=== PATIENT | female | born 1985 | race Caucasian/White ===

== ENCOUNTER 2016-06-20 20:21 | Emergency (ER) | payer MEDICAID ==
[~2016-06-20] VITALS: Ht 160 cm; Wt 90.6 kg
--- OUTSIDE RECORDS SUMMARY | 2016-06-20 20:27 | XMS REPORT | Continuity of Care Document ---
Author Author [facility] Organization [facility] Address [address] [place] [address] ;ext= Care Team Providers Care Justowriter Operator Name Role Phone SOREN MCGUIRE Admitting Physician Unavailable SOREN MCGUIRE Attending Physician Unavailable ALIZE RESENDIZ Primary Care Physician [phone] Hospital Admission Diagnosis * No data in the System Social History Element Description Code Description Smoking Status Code System Start Date End Date Smoking Status [id number] Heavy tobacco smoker SNOMED-CT Problems Code Code System Problem Name Start Date End Date Status 232243603 SNOMED-CT Tobacco dependence, continuous 03/11/2015 Active 217259790 SNOMED-CT Asthma 03/11/2015 Active 515535083 SNOMED-CT C/O - a headache 04/09/2014 Inactive 150807212 SNOMED-CT Asthma NOS Unknown Active 188258346 SNOMED-CT C/O - cough Unknown Inactive 27364689 SNOMED-CT Hypothyroidism Unknown Active 07502681 SNOMED-CT Polycystic ovaries Unknown Active Medications RxNorm Medication Dose Route Instructions Indications Start Date End Date Status Cetirizine 10 milligram Oral orally every day at bedtime allergies Active LANSINOH UD CREAM 100% THIN LAYER TOPICAL TOPICAL NEEDED as needed. 03/18/2015 Active 547651 montelukast 10 MG Oral Tablet 10 milligram Oral orally every evening Active 979994 Omeprazole 20 MG Delayed Release Oral Tablet 20 milligram Oral orally every evening Reflux during Active Synthroid 50 microgram Oral orally every day Active 550496 Acetaminophen 325 MG / Hydrocodone Bitartrate 10 MG Oral Tablet 1 tablet Oral orally every 6 hours as needed. pain No Longer Active 5775571 Acetaminophen 325 MG / Oxycodone Hydrochloride 10 MG Oral Tablet 2 TABLETS ORAL ORAL EVERY FOUR HOURS NEEDED as needed. 03/18/2015 No Longer Active 435 Albuterol 2 puffs Inhalation inhaled every 4 hours as needed. (unsure of dose) shortness of breath No Longer Active Cetirizine 10 milligram Oral orally every day as needed. allergy symptoms No Longer Active fluticasone 2 inhalation Inhalation inhaled every 12 hours as needed. (unsure of dose) No Longer Active Ibuprofen 800 MG Oral Tablet 800 MG ORAL ORAL EVERY EIGHT HOURS NEEDED as needed. 03/18/2015 No Longer Active 19971013 Levofloxacin 500 MG Oral Tablet 500 milligram Oral orally every 24 hours (7 days) No Longer Active levothyroxine by Mouth by Mouth No Longer Active lortab 7.5mg by Mouth by Mouth No Longer Active 20010414 montelukast 10 MG Oral Tablet 10 milligram Oral orally every day No Longer Active 180327 pioglitazone 30 MG Oral Tablet 30 milligram Oral orally every day No Longer Active 250857 prednisolone 5 MG Oral Tablet 20 milligram Oral orally every 12 hours (9 days) (tapering dose) No Longer Active Formula 1 tablet tablet Oral orally every day at bedtime No Longer Active Previfem 1 tablet Oral orally every day No Longer Active 72725 salmeterol 2 inhalation Inhalation inhaled every 12 hours as needed. (unsure of dose) No Longer Active 8500616 Sulfacetamide Sodium 100 MG/ML Ophthalmic Solution 1 drop Ophthalmic into the eye(s) every 3 hours (7 day) (left eye) No Longer Active Allergies * No Known Allergies Results Laboratory Results Order: HCG Qualatative Urine Legend: D=Delta, H=High, L=Low, HH=Critical High, LL=Critical Low, AA=Critical Alpha-Numeric, C=Corrected, A=Abnormal LOINC Test Result Flag Range Units Date 1HCG SerPl-Imp Negative NEGATIVE 04/07/2015 16:15 * Performing Lab Footnotes:* [facility] [id number] - [address] - [place] Order: Urinalysis With Microscopic Exam Legend: D=Delta, H=High, L=Low, HH=Critical High, LL=Critical Low, AA=Critical Alpha-Numeric, C=Corrected, A=Abnormal LOINC Test Result Flag Range Units Date 5778-6 Color Ur Yellow 04/07/2015 16:15 46771-5 Clarity Ur Clear 04/07/2015 16:15 2966-0 Sp Gr 24h Ur <=1.005 1.005-1.030 04/07/2015 16:15 2756-5 pH Ur 5.5 5.0-7.0 04/07/2015 16:15 01126-2 Leukocyte esterase Ur-aCnc Negative NEGATIVE 04/07/2015 16:15 21031-8 Nitrite Ur Ql Strip.auto Negative NEGATIVE 04/07/2015 16:15 47045-3 Prot Tiss-mCnt Negative NEGATIVE 04/07/2015 16:15 2349-9 Glucose Ur Ql Negative NEGATIVE 04/07/2015 16:15 34514-2 MEK Ur-mCnc Negative NEGATIVE 04/07/2015 16:15 1977-8 Bilirub Ur Ql Negative NEGATIVE 04/07/2015 16:15 933-2 Bld Prod Typ BPU Moderate * NEGATIVE 04/07/2015 16:15 49743-0 Urobilinogen Ur Ql 0.2 <=1.0 04/07/2015 16:15 1WBC_UM 0-2 * 0-5 /HPF 04/07/2015 16:15 5808-1 1RBC # UrnS HPF 0-2 * 0-5 /HPF 04/07/2015 16:15 5787-7 1Epi Cells #/area UrnS HPF 5-10 * 0-2 /HPF 04/07/2015 16:15 83528-6 1Trans Cells #/area UrnS HPF 0-2 04/07/2015 16:15 15226-4 1C trach UrnS Ql Cult N 04/07/2015 16:15 * Performing Lab Footnotes:* [facility] [id number] - [address] - [place] Order: Amylase Legend: D=Delta, H=High, L=Low, HH=Critical High, LL=Critical Low, AA=Critical Alpha-Numeric, C=Corrected, A=Abnormal LOINC Test Result Flag Range Units Date 17988 1Amylase SerPl-cCnc 52 29-103 u/l 04/07/2015 16:11 * Performing Lab Footnotes:* [facility] - [id number] - [address] [place] [address] - [place] Order: CBC With Automated Differential Legend: D=Delta, H=High, L=Low, HH=Critical High, LL=Critical Low, AA=Critical Alpha-Numeric, C=Corrected, A=Abnormal LOINC Test Result Flag Range Units Date 6690-2 1WBC # Bld Auto 7.0 4.5-11.0 10^3/mm3 04/07/2015 16:11 51080-8 1Retics # Auto 4.93 4.00-5.20 10^6/mm3 04/07/2015 16:11 63681-9 1Hgb BldV-mCnc 15.5 12.0-16.0 g/dl 04/07/2015 16:11 4544-3 1Hct VFr Bld Auto 46.0 36.0-46.0 % 04/07/2015 16:11 787-2 1MCV RBC Auto 93.3 82.0-100.0 10^6/mm3 04/07/2015 16:11 785-6 1MCH RBC Qn Auto 31.4 27.0-34.0 pg 04/07/2015 16:11 786-4 1MCHC RBC Auto-mCnc 33.7 32.0-36.0 g/dl 04/07/2015 16:11 788-0 1RDW RBC Auto-Rto 12.9 11.7-15.0 % 04/07/2015 16:11 777-3 1Platelet # Bld Auto 335 150-450 10^3/mm3 04/07/2015 16:11 31615-7 1PMV Bld 10.7 H 7.4-10.4 04/07/2015 16:11 75218-3 1Neutrophils # CSF 76.5 H 40.0-74.0 % 04/07/2015 16:11 1LYMPH% 13.1 L 14.0-46.0 % 04/07/2015 16:11 58932-6 1CD43 Ag Tiss Ql ImStn 6.7 4.0-13.0 % 04/07/2015 16:11 711-2 1Eosinophil # Bld Auto 3.4 0.0-4.0 % 04/07/2015 16:11 704-7 1Basophils # Bld Auto 0.3 <=3.0 % 04/07/2015 16:11 751-8 1Neutrophils # Bld Auto 5.4 1.8-7.8 04/07/2015 16:11 53690-4 1Lymphocytes # Bld 0.9 0.7-4.5 04/07/2015 16:11 40143-0 1CD43 Ag Tiss Ql ImStn 0.5 0.1-1.0 04/07/2015 16:11 711-2 1Eosinophil # Bld Auto 0.24 <=4.00 04/07/2015 16:11 704-7 1Basophils # Bld Auto 0.02 <=0.20 04/07/2015 16:11 2MANDIFF N 04/07/2015 16:11 01671-7 2RBC Bld Auto N 04/07/2015 16:11 * Performing Lab Footnotes:* [facility] - [id number] - [address] - [place] * [facility] - [id number] - [address] - Sanding Machine Operator:, Lexie Rowe MD - [place] Order: Comprehensive Metabolic Panel Legend: D=Delta, H=High, L=Low, HH=Critical High, LL=Critical Low, AA=Critical Alpha-Numeric, C=Corrected, A=Abnormal LOINC Test Result Flag Range Units Date 2344-09 1Glucose SerPl-mCnc 90 70-105 mg/dl 04/07/2015 16:11 3094-0 1BUN SerPl-mCnc 12 7-25 mg/dl 04/07/2015 16:11 2160-0 1Creat SerPl-mCnc 0.8 0.6-1.3 mg/dl 04/07/2015 16:11 55445-2 1Creat/Urea nit SerPl 15 13-39 04/07/2015 16:11 2951-2 1Sodium SerPl-sCnc 135 135-145 mmol/L 04/07/2015 16:11 69410-4 1Potassium SerPl-mCnc 4.0 3.5-5.1 mmol/L 04/07/2015 16:11 2075-0 1Chloride SerPl-sCnc 100 98-107 mmol/l 04/07/2015 16:11 2028-9 1CO2 SerPl-sCnc 25 21-31 mmol/l 04/07/2015 16:11 44254-3 1Anion Gap SerPl-sCnc 14 9-16 mmol/L 04/07/2015 16:11 2692-2 1Osmolality SerPl 279 277-298 mOsm/kg 04/07/2015 16:11 99928-9 1Calcium SerPl-mCnc 9.6 8.2-10.0 mg/dl 04/07/2015 16:11 1742-6 1ALT SerPl-cCnc 17 7-52 IU/L 04/07/2015 16:11 1920-8 1AST SerPl-cCnc 18 13-39 IU/L 04/07/2015 16:11 1715-2 1ACP SerPl-cCnc 80 34-104 U/L 04/07/2015 16:11 1975-2 1Bilirub SerPl-mCnc 0.8 0.3-1.0 mg/dl 04/07/2015 16:11 2885-2 1Prot SerPl-mCnc 7.8 6.0-8.3 g/dL 04/07/2015 16:11 1751-7 1Albumin SerPl-mCnc 3.7 3.5-5.7 g/dl 04/07/2015 16:11 2336-6 1Globulin Ser-mCnc 4.1 H 2.3-3.2 g/dL 04/07/2015 16:11 1759-0 1Albumin/Glob SerPl 0.9 L 1.2-2.0 04/07/2015 16:11 1GFR 87 60-116 GFRunits 04/07/2015 16:11 * Performing Lab Footnotes:* [facility] - [id number] - [address] - [place] Order: Lipase Legend: D=Delta, H=High, L=Low, HH=Critical High, LL=Critical Low, AA=Critical Alpha-Numeric, C=Corrected, A=Abnormal LOINC Test Result Flag Range Units Date 3040-3 1Lipase SerPl-cCnc 31 11-82 U/L 04/07/2015 16:11 * Performing Lab Footnotes:* [facility] - [id number] - [address] [address] [place] - [place] Vital Signs Vitals Value Date Body Temperature 98.4 F 04/07/2015 Respiratory Rate 16 04/07/2015 O2% BldC Oximetry 96 04/07/2015 BP Systolic 131 mmHg 04/07/2015 BP Diastolic 93 mmHg 04/07/2015 Height 63 in 04/07/2015 Weight Measured 197 lbs 04/07/2015 BSA (Body Surface Area) 1.96328 04/07/2015 BMI (Body Mass Index) 34.9 04/07/2015 Plan of Care * No data in the system Procedures * No data in the system Encounters * No data in the system Immunizations Vaccine Code Code System Vaccine Name Date Status 88 CVX influenza virus vaccine, NOS 12/10/2011 Completed Functional Status * No data in the system Hospital Discharge Instructions * No data in the system
--- OUTSIDE RECORDS SUMMARY | 2016-06-20 20:27 | XMS REPORT | Continuity of Care Document ---
Author Author [facility] Organization [facility] Address Unknown Phone Unavailable Allergies Active Description Code Type Severity Reaction Onset Reported/Identified Relationship to Patient Clinical Status Yes Augmentin 4242 Unknown intolerance 04/18/2013 Yes Penicillins 476 Unknown N/A 04/09/2014 Yes No Known Allergies 200813 Unknown N/A 03/18/2015 Medications Problems Date Dx Coded Attending Type Code Diagnosis Diagnosed By 10/01/2014 ANGELICA BRAY 244.9 UNSPECIFIED HYPOTHYROIDISM 10/01/2014 ANGELICA BRAY V22.2 STATE, INCIDENTAL 10/20/2014 SANGEETHA BURNETT P V28.89 OTHER SPECIFIED SCREENING 2014 SAPPHIRE BRANTLEY P 648.73 BONE AND JOINT DISORDERS OF BACK, PELVIS, AND LOWER LIMBS COMPLICATING 2014 SAPPHIRE BRANTLEY 724.5 BACKACHE, UNSPECIFIED 11/17/2014 Shashi BENITO S 592.1 CALCULUS OF URETER 11/17/2014 Shashi BENITO P 789.00 ABDOMINAL PAIN, UNSPECIFIED SITE 12/05/2014 ANGELICA RBAY 244.9 UNSPECIFIED HYPOTHYROIDISM 12/05/2014 ANGELICA BRAY 256.4 POLYCYSTIC OVARIES 12/05/2014 ANGELICA BRAY V22.2 STATE, INCIDENTAL 12/16/2014 SAPPHIRE BRANTLEY P V28.89 OTHER SPECIFIED SCREENING 01/24/2015 SAPPHIRE BRANTLEY P V28.89 OTHER SPECIFIED SCREENING 01/24/2015 SAPPHIRE BRANTLEY P Z34.83 ENCOUNTER FOR SUPERVISION OF OTHER NORMAL , THIRD TRIMESTER 01/24/2015 SAPPHIRE BRANTLEY S Z3A.31 31 WEEKS GESTATION OF 03/01/2015 ANGELICA BRAY 244.9 UNSPECIFIED HYPOTHYROIDISM 03/01/2015 ANGELICA BRAY 246.9 UNSPECIFIED DISORDER OF THYROID 03/01/2015 ANGELICA BRAY 256.4 POLYCYSTIC OVARIES 03/01/2015 ANGELICA BRAY P 648.13 THYROID DYSFUNCTION COMPLICATING , CHILDBIRTH, OR THE PUERPERIUM, ANTEP 03/01/2015 ANGELICA BRAY E03.9 HYPOTHYROIDISM, UNSPECIFIED 03/01/2015 ANGELICA BRAY E28.2 POLYCYSTIC OVARIAN SYNDROME 03/01/2015 ANGELICA BRAY P O99.283 ENDOCRINE, NUTRITIONAL AND METABOLIC DISEASES COMPLICATING , THIRD TRIMESTER 03/01/2015 ANGELICA BRAY Z3A.36 36 WEEKS GESTATION OF 03/02/2015 SANGEETHA BURNETT P Z36 ENCOUNTER FOR SCREENING OF MOTHER 03/17/2015 P Z01.812 ENCOUNTER FOR PREPROCEDURAL LABORATORY EXAMINATION 03/17/2015 SANGEETHA BURNETT Z36 ENCOUNTER FOR SCREENING OF MOTHER 04/14/2015 BLACK MCGUIRE A04.7 ENTEROCOLITIS DUE TO CLOSTRIDIUM DIFFICILE 04/14/2015 BLACK MCGUIRE A08.39 OTHER VIRAL ENTERITIS 04/14/2015 BLACK MCGUIRE R19.7 DIARRHEA, UNSPECIFIED 04/19/2015 GURU CALERO E03.9 HYPOTHYROIDISM, UNSPECIFIED 04/19/2015 GURU CALERO J34.3 HYPERTROPHY OF NASAL TURBINATES 04/19/2015 GURU CALERO J35.01 CHRONIC TONSILLITIS 04/19/2015 GURU CALERO Z01.818 ENCOUNTER FOR OTHER PREPROCEDURAL EXAMINATION 04/26/2015 SANGEETHA BURNETT F17.210 NICOTINE DEPENDENCE, CIGARETTES, UNCOMPLICATED 04/26/2015 SANGEETHA BURNETT O34.21 MATERNAL CARE FOR SCAR FROM PREVIOUS DELIVERY 04/26/2015 SANGEETHA BURNETT O99.334 SMOKING (TOBACCO) COMPLICATING CHILDBIRTH 04/26/2015 SANGEETHA BURNETT Z37.0 SINGLE LIVE 04/26/2015 SANGEETHA BURNETT Z3A.39 39 WEEKS GESTATION OF 05/13/2015 BLACK MCGUIRE K57.92 DIVERTICULITIS OF INTESTINE, PART UNSPECIFIED, WITHOUT PERFORATION OR ABSCESS WITHOUT BLEEDING 05/13/2015 BLACK MCGUIRE R11.10 VOMITING, UNSPECIFIED Procedures Code Description Performed By Performed On 40C71G4 EXTRACTION OF PRODUCTS OF CONCEPTION, LOW CERVICAL, OPEN APPROACH KRISTIN BURNETTLOPEZ Vega 03/18/2015 Results Encounters ACCT No. Visit Date/Time Discharge Status Pt. Type Provider Facility Loc./Unit Complaint [id number] 04/12/2015 12:26:00 ACT Unknown GURU CALERO [id number] 04/08/2015 15:53:00 ACT Unknown BLACK MCGUIRE [id number] 04/07/2015 15:32:00 [facility] NSER NAUSEA AND / OR VOMITING [id number] 03/18/2015 09:28:00 ACT Inpatient LEXSANGEETHA DONIS [facility] NSOB [id number] 03/17/2015 15:00:00 Document Registration [id number] 03/02/2015 12:55:00 ACT Unknown SANGEETHA BURNETT [facility] OBGYN [id number] 02/15/2015 07:47:00 ACT Unknown ANGELICA BRAY [id number] 01/10/2015 13:19:00 ACT Unknown SAPPHIRE BRANTLEY [facility] OBGYN [id number] 12/02/2014 11:01:00 ACT Unknown ANGELICA BRAY [id number] 11/02/2014 09:53:00 ACT Unknown SAPPHIRE BRANTLEY [id number] 10/31/2014 13:30:00 ACT Unknown Shashi BENITO [facility] NSER UTI COMPLAINTS [id number] 10/20/2014 10:11:00 ACT Unknown SANGEETHA BURNETT [facility] OBGYN [id number] 10/20/2014 10:11:00 ACT Unknown LEXSANGEETHA [facility] OBGYN [id number] 09/28/2014 13:21:00 ACT Unknown ANGELICA BRAY
--- OUTSIDE RECORDS SUMMARY | 2016-06-20 20:27 | XMS REPORT | Continuity of Care Document ---
Author Author [facility] Organization [facility] Address [address] [place] [address] ;ext= Care Team Providers Care Supervisor Mail Carriers Name Role Phone SOREN MCGUIRE Admitting Physician Unavailable SOREN MCGUIRE Attending Physician Unavailable Hospital Admission Diagnosis * No data in the System Social History Element Description Code Description Smoking Status Code System Start Date End Date Smoking Status 500112424 Unknown if ever smoked SNOMED-CT Problems Code Code System Problem Name Start Date End Date Status 071364984 SNOMED-CT Tobacco dependence, continuous 03/11/2015 Active 863865484 SNOMED-CT Asthma 03/11/2015 Active 137565137 SNOMED-CT C/O - a headache 04/09/2014 Inactive 663076024 SNOMED-CT Asthma NOS Unknown Active 903193605 SNOMED-CT C/O - cough Unknown Inactive 02264556 SNOMED-CT Hypothyroidism Unknown Active 17525725 SNOMED-CT Polycystic ovaries Unknown Active Medications RxNorm Medication Dose Route Instructions Indications Start Date End Date Status Cetirizine 10 milligram Oral orally every day at bedtime allergies Active LANSINOH UD CREAM 100% THIN LAYER TOPICAL TOPICAL NEEDED as needed. 03/18/2015 Active 254276 montelukast 10 MG Oral Tablet 10 milligram Oral orally every evening Active 803979 Omeprazole 20 MG Delayed Release Oral Tablet 20 milligram Oral orally every evening Reflux during Active Synthroid 50 microgram Oral orally every day Active 236839 Acetaminophen 325 MG / Hydrocodone Bitartrate 10 MG Oral Tablet 1 tablet Oral orally every 6 hours as needed. pain No Longer Active 5303200 Acetaminophen 325 MG / Oxycodone Hydrochloride 10 MG Oral Tablet 2 TABLETS ORAL ORAL EVERY FOUR HOURS NEEDED as needed. 03/18/2015 No Longer Active 435 Albuterol 2 puffs Inhalation inhaled every 4 hours as needed. (unsure of dose) shortness of breath No Longer Active Cetirizine 10 milligram Oral orally every day as needed. allergy symptoms No Longer Active 82492 fluticasone 2 inhalation Inhalation inhaled every 12 [...] Oral orally every day No Longer Active 068036 pioglitazone 30 MG Oral Tablet 30 milligram Oral orally every day No Longer Active 070155 prednisolone 5 MG Oral Tablet 20 milligram Oral orally every 12 hours (9 days) (tapering dose) No Longer Active Formula 1 tablet tablet Oral orally every day at bedtime No Longer Active Previfem 1 tablet Oral orally every day No Longer Active 38245 salmeterol 2 inhalation Inhalation inhaled every 12 hours as needed. (unsure of dose) No Longer Active 9726325 Sulfacetamide Sodium 100 MG/ML Ophthalmic Solution 1 drop Ophthalmic into the eye(s) every 3 hours (7 day) (left eye) No Longer Active Allergies * No Known Allergies Results Laboratory Results Order: GI Panel Legend: D=Delta, H=High, L=Low, HH=Critical High, LL=Critical Low, AA=Critical Alpha-Numeric, C=Corrected, A=Abnormal LOINC Test Result Flag Range Units Date GI Panel 1Campylobacter Not Detected NOT DETECTED 04/08/2015 13:00 1C. diff A/B Detected 04/08/2015 13:00 1Plesiomonas shig Not Detected 04/08/2015 13:00 1Salmonella Not Detected 04/08/2015 13:00 1Vibrio Not Detected 04/08/2015 13:00 1Vibrio cholerae Not Detected 04/08/2015 13:00 1Yersinia entero Not Detected 04/08/2015 13:00 1EAEC Not Detected 04/08/2015 13:00 1EPEC Not Detected 04/08/2015 13:00 1ETEC Not Detected 04/08/2015 13:00 1STEC Not Detected 04/08/2015 13:00 1E. coli O157 N/A 04/08/2015 13:00 1Shigella/EIEC Not Detected 04/08/2015 13:00 1Cryptosporidum Not Detected 04/08/2015 13:00 1Cyclospora cayet. Not Detected 04/08/2015 13:00 1Entamoeba histo. Not Detected 04/08/2015 13:00 1Giardia lamblia Not Detected 04/08/2015 13:00 1Adenovirus F 40/41 Not Detected 04/08/2015 13:00 1Astrovirus Not Detected 04/08/2015 13:00 1Norovirus GI/GII Detected 04/08/2015 13:00 1Rotavirus A Not Detected 04/08/2015 13:00 1Sapovirus Not Detected 04/08/2015 13:00 GI Panel Abbreviations Plesiomonas shigelloidesClostridium Difficile toxin A/B Yersinia enterocolitica Enteroaggregative E.coli(EAEC)Enteropathogenic E.coli (EPEC) Enterotoxigenic E. coli (ETEC)Shiga toxin 1/2 (STEC) Shigella/ Enteroinvasive E. coli (EIEC) Cyclospora cayetariensis Entamoeba histolytica The performance of this test has only been validated with human stool collected in Nohelia Kaleb transport medium, according to the media manufacturers' instructions. It has not been validated for use with other stool transport media , raw stool, rectal swabs, endoscopy stool aspirates, or vomitis. * [employer] limitations of procedure instructions* * Performing Lab Footnotes:* [address] [place] [address] Laboratory - [id number] - [address] [place] [address] - [place] Order: Occult Blood Stool Legend: D=Delta, H=High, L=Low, HH=Critical High, LL=Critical Low, AA=Critical Alpha-Numeric, C=Corrected, A=Abnormal LOINC Test Result Flag Range Units Date 18411-7 1OB Pnl Stl Imm Negative NEGATIVE 04/08/2015 13:00 * Performing Lab Footnotes:* [facility] [id number] - [address] Kevin LOPEZ Order: WBC Stool Legend: D=Delta, H=High, L=Low, HH=Critical High, LL=Critical Low, AA=Critical Alpha-Numeric, C=Corrected, A=Abnormal LOINC Test Result Flag Range Units Date 6743-9 1WBC # Fld Manual Negative 04/08/2015 13:00 Reporting of Fecal WBC is now being reported by immunochromatographic testing for qualitative dectection of elevated fecal lactoferrin, a maker for fecal leukocytes and an indicator of intestinal inflammation. A positive test result indicates an increased level of fecal lactoferrin and warrants additional testing. * Performing Lab Footnotes:* [facility] - [id number] - [address] [place] [address] [place] Vital Signs * No data in the system Plan of Care * No data in [...]
--- OUTSIDE RECORDS SUMMARY | 2016-06-20 20:27 | XMS REPORT | Continuity of Care Document ---
Author Author [facility] Organization [facility] Address [address] [place] [address] ;ext= Care Team Providers Care Drawer In Stitch Bonding Machine Name Role Phone Silvia FONTAINE Admitting Physician [phone] Silvia FONTAINE Attending Physician [phone] Hospital Admission Diagnosis Code Admission Diagnosis Date [id number] Maternal tobacco use Social History Element Description Code Description Smoking Status Code System Start Date End Date Smoking Status [id number] Heavy tobacco smoker SNOMED-CT Problems Code Code System Problem Name Start Date End Date Status 216085967 SNOMED-CT Tobacco dependence, continuous 03/11/2015 Active 192283998 SNOMED-CT Asthma 03/11/2015 Active 255218239 SNOMED-CT C/O - a headache 04/09/2014 Inactive 271456954 SNOMED-CT Asthma NOS Unknown Active 969310186 SNOMED-CT C/O - cough Unknown Inactive 41484584 SNOMED-CT Hypothyroidism Unknown Active 64287883 SNOMED-CT Polycystic ovaries Unknown Active Medications RxNorm Medication Dose Route Instructions Indications Start Date End Date Status Cetirizine 10 milligram Oral orally every day at bedtime allergies Active LANSINOH UD CREAM 100% THIN LAYER TOPICAL TOPICAL NEEDED as needed. 03/18/2015 Active 473017 montelukast 10 MG Oral Tablet 10 milligram Oral orally every evening Active 570349 Omeprazole 20 MG Delayed Release Oral Tablet 20 milligram Oral orally every evening Reflux during Active Synthroid 50 microgram Oral orally every day Active 878128 Acetaminophen 325 MG / Hydrocodone Bitartrate 10 MG Oral Tablet 1 tablet Oral orally every 6 hours as needed. pain No Longer Active 0455787 Acetaminophen 325 MG / Oxycodone Hydrochloride 10 MG Oral Tablet 2 TABLETS ORAL ORAL EVERY FOUR HOURS NEEDED as needed. 03/18/2015 No Longer Active 435 Albuterol 2 puffs Inhalation inhaled every 4 hours as needed. (unsure of dose) shortness of breath No Longer Active 54107 Cetirizine 10 milligram Oral orally every day as needed. allergy symptoms No Longer Active 52833 fluticasone 2 inhalation Inhalation inhaled every 12 [...] Oral orally every day No Longer Active 197882 pioglitazone 30 MG Oral Tablet 30 milligram Oral orally every day No Longer Active 688474 prednisolone 5 MG Oral Tablet 20 milligram Oral orally every 12 hours (9 days) (tapering dose) No Longer Active Formula 1 tablet tablet Oral orally every day at bedtime No Longer Active Previfem 1 tablet Oral orally every day No Longer Active 30008 salmeterol 2 inhalation Inhalation inhaled every 12 hours as needed. (unsure of dose) No Longer Active 1006566 Sulfacetamide Sodium 100 MG/ML Ophthalmic Solution 1 drop Ophthalmic into the eye(s) every 3 hours (7 day) (left eye) No Longer Active Allergies * No Known Allergies Results Laboratory Results Order: CBC With Automated Differential Legend: D=Delta, H=High, L=Low, HH=Critical High, LL=Critical Low, AA=Critical Alpha-Numeric, C=Corrected, A=Abnormal LOINC Test Result Flag Range Units Date 6689-04 1WBC # Bld Auto 10.9 4.5-11.0 10^3/mm3 03/19/2015 06:50 11791-2 1Retics # Auto 3.70 L 4.00-5.20 10^6/mm3 03/19/2015 06:50 09631-1 1Hgb BldV-mCnc 12.1 12.0-16.0 g/dl 03/19/2015 06:50 4544-3 1Hct VFr Bld Auto 35.4 L 36.0-46.0 % 03/19/2015 06:50 787-2 1MCV RBC Auto 95.7 82.0-100.0 10^6/mm3 03/19/2015 06:50 785-6 1MCH RBC Qn Auto 32.7 27.0-34.0 pg 03/19/2015 06:50 786-4 1MCHC RBC Auto-mCnc 34.2 32.0-36.0 g/dl 03/19/2015 06:50 788-0 1RDW RBC Auto-Rto 14.2 11.7-15.0 % 03/19/2015 06:50 777-3 1Platelet # Bld Auto 159 150-450 10^3/mm3 03/19/2015 06:50 21579-4 1PMV Bld 11.4 H 7.4-10.4 03/19/2015 06:50 82193-7 1Neutrophils # CSF 67.6 40.0-74.0 % 03/19/2015 06:50 1LYMPH% 20.6 14.0-46.0 % 03/19/2015 06:50 01033-0 1CD43 Ag Tiss Ql ImStn 9.8 4.0-13.0 % 03/19/2015 06:50 711-2 1Eosinophil # Bld Auto 1.8 0.0-4.0 % 03/19/2015 06:50 704-7 1Basophils # Bld Auto 0.2 <=3.0 % 03/19/2015 06:50 751-8 1Neutrophils # Bld Auto 7.3 1.8-7.8 03/19/2015 06:50 00059-7 1Lymphocytes # Bld 2.2 0.7-4.5 03/19/2015 06:50 34068-5 1CD43 Ag Tiss Ql ImStn 1.1 H 0.1-1.0 03/19/2015 06:50 711-2 1Eosinophil # Bld Auto 0.20 <=4.00 03/19/2015 06:50 704-7 1Basophils # Bld Auto 0.02 <=0.20 03/19/2015 06:50 2MANDIFF N 03/19/2015 06:50 58169-7 2RBC Bld Auto N 03/19/2015 06:50 * Performing Lab Footnotes:* 1[facility] - [id number] - [address] - [place] * [id number] [address] - Building Services Coordinator:, Louise Rowe MD - [place] Order: Hemoglobin and Hematocrit Legend: D=Delta, H=High, L=Low, HH=Critical High, LL=Critical Low, AA=Critical Alpha-Numeric, C=Corrected, A=Abnormal LOINC Test Result Flag Range Units Date 83603-2 1Hgb BldV-mCnc 12.4 12.0-16.0 g/dl 03/18/2015 15:48 4544-3 1Hct VFr Bld Auto 36.1 36.0-46.0 % 03/18/2015 15:48 * Performing Lab Footnotes:* [facility] - [id number] - [address] - [place] Order: Urinalysis Stewart Insertion * Order Result Comment:* 1Urine microscopic not indicated. Legend: D=Delta, H=High, L=Low, HH=Critical High, LL=Critical Low, AA=Critical Alpha-Numeric, C=Corrected, A=Abnormal LOINC Test Result Flag Range Units Date 5778-6 1Color Ur Light Straw 03/18/2015 11:10 76350-2 1Clarity Ur Clear 03/18/2015 11:10 2966-0 1Sp Gr 24h Ur 1.015 1.005-1.030 03/18/2015 11:10 2756-5 1pH Ur 7.0 5.0-7.0 03/18/2015 11:10 31690-7 1Leukocyte esterase Ur-aCnc Negative NEGATIVE 03/18/2015 11: 10 80392-3 1Nitrite Ur Ql Strip.auto Negative NEGATIVE 03/18/2015 11:10 09439-0 1Prot Tiss-mCnt Negative NEGATIVE 03/18/2015 11:10 2349-9 1Glucose Ur Ql Negative NEGATIVE 03/18/2015 11:10 60485-1 1MEK Ur-mCnc Negative NEGATIVE 03/18/2015 11:10 1977-8 1Bilirub Ur Ql Negative NEGATIVE 03/18/2015 11:10 933-2 1Bld Prod Typ BPU Trace-intact * NEGATIVE 03/18/2015 11:10 82264-8 1Urobilinogen Ur Ql 0.2 <=1.0 03/18/2015 11:10 59697-6 1C trach UrnS Ql Cult N 03/18/2015 11:10 * Performing Lab Footnotes:* [facility] - [id number] - [address] - [place] Order: Activated Partial Thromboplastin Time Legend: D=Delta, H=High, L=Low, HH=Critical High, LL=Critical Low, AA=Critical Alpha-Numeric, C=Corrected, A=Abnormal LOINC Test Result Flag Range Units Date 1PTT 24.5 24.0-35.0 Seconds 03/18/2015 09:55 * Performing Lab Footnotes:* [facility] - [id number] - [address] - [place] Order: Protime With INR Legend: D=Delta, H=High, L=Low, HH=Critical High, LL=Critical Low, AA=Critical Alpha-Numeric, C=Corrected, A=Abnormal LOINC Test Result Flag Range Units Date 1PT 9.2 9.1-11.6 Seconds 03/18/2015 09:55 69192-7 1INR p heparin adsorption PPP 0.92 0.90-1.15 03/18/2015 09:55 * Performing Lab Footnotes:* [facility] - [id number] - [address] [place], [place] [id number] [place] [address] - [place] Vital Signs Vitals Value Date Body Temperature 97.5 F 03/20/2015 Respiratory Rate 18 03/20/2015 O2% BldC Oximetry 98 03/20/2015 BP Systolic 134 mmHg 03/20/2015 BP Diastolic 71 mmHg 03/20/2015 Height 64 in 03/18/2015 Weight Measured 210 lbs 03/18/2015 BSA (Body Surface Area) 1.06821 03/18/2015 BMI (Body Mass Index) 36.2 03/18/2015 Plan of Care Goal Instructions Discharge home today. Please take medication as prescribed. Please call the office if you develop pain not relieved by prescribed mediation, if you develop temperature greater than 100.4, excessive vaginal bleeding, or puss like drainage from your incision. Please follow-up in the office with Dr. Fontaine in 1 week for staple removal. Please follow-up in the office in 6 weeks for post - visit. Procedures Code Code System Procedure Name Target Site Date of Procedure [id number] SNOMED section 03/18/2015 [id number] ICD10 XTRCT PRODUCTS CONCEPTION L CERV OP 03/18/2015 Encounters Date Code Diagnosis Status (ICD10) - F63810 SMOKING TOBACCO COMP CHILDBIRTH Active Immunizations Vaccine Code Code System Vaccine Name Date Status 88 CVX influenza virus vaccine, NOS 12/10/2011 Completed Functional Status * No data in the system Hospital Discharge Instructions * DC Instr* CONGRATULATIONS!* We would like to take this moment to extend our heartfelt congratulations on the arrival of your infant. * It has been a pleasure and an honor to be involved in your care. * We sincerely hope that your and experience has been a rewarding and joyous event. * However, these next few weeks will be very important for you and your baby. * Diet* You may resume a normal diet when you are discharged from the hospital. * Remember, you are nursing and you still have increased calorie demands and dieting is not recommended. * You should continue your vitamins until your six week check-up or for as long as you may be nursing. * Activity* For the first week you are home, it is best to minimize activity until you are more comfortable with baby's schedule. * After the first week you may begin driving, housework, shopping, or exercise. * Medications* Continue your vitamins until your 6 week check-up or if for the duration of your nursing. * Advil or Tylenol is recommended for any minor discomforts. * Your doctor may prescribe a stronger pain medication if you are experiencing more discomfort or if a delivery. * Additionally, you may receive prescriptions for iron supplements, stool softeners, or antibiotics. * If you have questions about your prescriptions please ask your doctor or call the office. * Special Instructions* For hemorrhoids, use 15 minute sitz baths several times a day. * Keep your stool soft by drinking plenty of fluids and eating fruits and vegetables. * You may also use a stool softener such as Colace. * ~ For constipation, increase your fluid intake; take a stool softener such as Colace, or use Milk of Magnesia or Dulcolax. * Call your doctor if you have not had a bowel movement by the 4th day following delivery. * If you had a , an appointment should be made for 10-14 days after discharge for staple removal. * You may bathe or shower as you wish, be sure to keep the incision dry afterwards. * If you notice any increase in pain, redness, drainage from incision, or temp greater than 100.4, contact your physician. * We do not recommend resumption of use of tampons, douching, or intercourse for 6 weeks following delivery. * Bleeding* Your bleeding may persist variably following delivery. * It may stop and start or it may seem to linger for weeks. * If you are not nursing often your periods will resume in 4 - 6 weeks. * In some instances, it may not resume for up to 6 months. * Bleeding patterns vary, no need for alarm unless you saturate 1 or more pad per hour. * If this occurs you should contact your physician. * Contraception* Even if you have not resumed your period, never assume you cannot get . * Refrain from sexual intercourse for 6 weeks or until approved by physician. * Breast Care* ~ Call your physician at the first sign of a breast infection. * This would include pain, redness and/or a temperature greater than 100.4 F degrees. * If you are , cleanse the breast with water only. * It is generally better to avoid the use of soap on the breasts. * Office Visit* ~ Plan to see your doctor for a follow-up visit in 6 weeks. * If you had a , an appointment should be made for 10-14 days after discharge for staple removal. * At any time you feel you are experiencing a problem, call the office to be seen before any scheduled visit. * CALL YOUR DOCTOR IF YOU EXPERIENCE ANY OF THE FOLLOWING: * ~ Continuous abdominal pain. * ~ Foul smelling vaginal discharge. * ~ Heavy bleeding (a full size sanitary napkin in an hour) * ~ Pain or redness in the leg * ~ Difficulty urinating. * ~ Temperature greater than 100.4 F. * ~ Tenderness or localized redness of the breasts. * APPOINTMENTS:* March 28 at 10:[address] Saha. * New Mom Handbook* Given * Rubella* Immune
--- OUTSIDE RECORDS SUMMARY | 2016-06-20 20:27 | XMS REPORT | Summary of Care ---
Author Author [facility], [facility] Unknown Address [address] [place], [place] [address] Phone Unavailable Care Team Providers Care Supervisor Soakers Name Role Phone Verify PCP PP Unavailable Unavailable Unavailable Functional Status Functional Status Health Issues* Name Dates Details Functional status health issues are not documented Status: Cognitive Status Health Issues* Name Dates Details Cognitive status health issues are not documented Status: Problems Name Dates Details Diarrhea (787.91, R19.7) Status: Active Abdominal pain, epigastric (789.06, R10.13) Status: Active Insomnia (780.52, G47.00) Status: Active Irritable bowel syndrome (564.1, K58.9) Status: Active Chronic viral hepatitis C (070.54, B18.2) Status: Active Dyspepsia (536.8, K30) Status: Active Chronic tonsillitis (474.00, J35.01) Status: Active Tonsillar hypertrophy (474.11, J35.1) Status: Active Tonsillith (474.8, J35.8) Status: Active Nasal congestion (478.19, R09.81) Status: Active Hypertrophy of nasal turbinates (478.0, J34.3) Status: Active Medications Name Dates Details Synthroid 50 MCG Oral Tablet TAKE 1 TABLET DAILY. * Started 15-Mar-2015 ActiveOmeprazole 20 MG Oral Capsule Delayed Release TAKE 1 CAPSULE DAILY. * Quantity: 30 Refills: 0 * Started 15-Mar-2015 ActiveCetirizine HCl - 10 MG Oral Tablet TAKE 1 TABLET DAILY DIRECTED. * Refills: 0 * Started 15-Mar-2015 ActivePrenatal 6.75-0.2 MG Oral Tablet * Refills: 0 * Started 15-Mar-2015 ActiveMontelukast Sodium 10 MG Oral Tablet TAKE 1 TABLET DAILY. * Refills: 0 * Started 15-Mar-2015 ActiveAlbuterol Sulfate (2.5 MG/3ML) 0.083% Inhalation Nebulization Solution * Refills: 0 * Started 15-Mar-2015 Active Allergies and Adverse Reactions Name Dates Details Amoxicillin CAPS Status: Active Cephalexin CAPS Status: Active Keflex TABS Status: Active Penicillins Status: Active Past Medical History Name Dates Details History of Abdominal Pain Chronic / Constant Status: Resolved History of ALT (SGPT) level raised (790.4, R74.0) Status: Resolved Procedures Procedure Dates Details History of Section History of Gallbladder Surgery History of Gastric Laparoscopy Procedures not documented Immunization Name Dates Details Immunizations not documented Family History Grandfather* Name Dates Details Family history of lung cancer (V16.1, Z80.1) Status: Active Grandparent* Name Dates Details Family history of lung disease (V19.8, Z83.6) Status: Active Mother* Name Dates Details Family history of epilepsy (V17.2, Z82.0) Status: Active Father* Name Dates Details Family history of hypertension (V17.49, Z82.49) Status: Active Family history of lung disease (V19.8, Z83.6) Status: Active Family history of sleep apnea (V19.8, Z82.0) Status: Active Family history of hyperlipidemia (V18.19, Z83.49) Status: Active Family history of lung cancer (V16.1, Z80.1) Status: Active Brother* Name Dates Details Family history of epilepsy (V17.2, Z82.0) Status: Active Grandfather* Name Dates Details Family history of lung cancer (V16.1, Z80.1) Status: Active Social History Name Dates Details Smoking Status* Current every day smoker Vital Signs Date Test Result Details 15-Mar-2015 11:19 BP Systolic 143 mm[Hg] Status: BP Diastolic 74 mm[Hg] Status: Heart Rate 78 /min Status: Weight 215 lb Status: Results Date Description Value Details Results not documented Plan of Care Planned Observations* Name Dates Details Planned Goals not documented Goal Planned Encounters* Appointment; Provider: Rikki Dawn On 21-Apr-2015 10:15 * Appointment; Provider: Rikki Dawn On 15-Apr-2015 11:00 Instructions * Instructions not documented Encounters Appointment; Rikki Dawn Encounter Diagnosis: Problem not documented On 15-Mar-2015 10:15
--- OUTSIDE RECORDS SUMMARY | 2016-06-20 20:28 | XMS REPORT | Continuity of Care Document ---
Author Author [facility] Organization [facility] Address [address] [place] [address] ;ext= Care Team Providers Care Head Of Quality Name Role Phone ANGELICA BRAY Admitting Physician [phone] ANGELICA BRAY Attending Physician [phone] Hospital Admission Diagnosis * No data in the System Social History Element Description Code Description Smoking Status Code System Start Date End Date Smoking Status [id number] Heavy tobacco smoker SNOMED-CT Problems Code Code System Problem Name Start Date End Date Status 316481704 SNOMED-CT C/O - a headache 04/09/2014 Active 708895352 SNOMED-CT Asthma NOS Unknown Active 545537247 SNOMED-CT C/O - cough Unknown Active 64176195 SNOMED-CT Hypothyroidism Unknown Active 37708121 SNOMED-CT Polycystic ovaries Unknown Active Medications RxNorm Medication Dose Route Instructions Indications Start Date End Date Status 435 Albuterol 1 puff Inhalation inhaled every 4 hours as needed. (unsure of dose) shortness of breath Active Synthroid 50 microgram Oral orally every day Active 015709 Acetaminophen 325 MG / Hydrocodone Bitartrate 10 MG Oral Tablet 1 tablet Oral orally every 6 hours as needed. pain No Longer Active 41340 Cetirizine 10 milligram Oral orally every day as needed. allergy symptoms No Longer Active 84441 fluticasone 2 inhalation Inhalation inhaled every 12 hours as needed. (unsure of dose) No Longer Active 19971013 Levofloxacin 500 MG Oral Tablet 500 milligram Oral orally every 24 hours (7 days) No Longer Active levothyroxine by Mouth by Mouth No Longer Active lortab 7.5mg by Mouth by Mouth No Longer Active 20010414 montelukast 10 MG Oral Tablet 10 milligram Oral orally every day No Longer Active 515825 pioglitazone 30 MG Oral Tablet 30 milligram Oral orally every day No Longer Active 19800610 prednisolone 5 MG Oral Tablet 20 milligram Oral orally every 12 hours (9 days) (tapering dose) No Longer Active Previfem 1 tablet Oral orally every day No Longer Active 56276 salmeterol 2 inhalation Inhalation inhaled every 12 hours as needed. (unsure of dose) No Longer Active 5425215 Sulfacetamide Sodium 100 MG/ML Ophthalmic Solution 1 drop Ophthalmic into the eye(s) every 3 hours (7 day) (left eye) No Longer Active Allergies Code Code System Allergy Substance Type Reaction Severity Start Date End Date Status 492933 RXNorm Augmentin Drug allergy intolerance Unknown 04/18/2013 Active 7986 RXNorm Penicillins Drug allergy Unknown 04/09/2014 Active Results Laboratory Results Order: T4 Free Legend: D=Delta, H=High, L=Low, HH=Critical High, LL=Critical Low, AA=Critical Alpha-Numeric, C=Corrected, A=Abnormal LOINC Test Result Flag Range Units Date 3024-7 1T4 Free SerPl-mCnc 0.74 0.61-1.12 ng/dl 02/15/2015 08:09 * Performing Lab Footnotes:* [id number] - [address] - [place] Order: Thyroid Stimulating Hormone Legend: D=Delta, H=High, L=Low, HH=Critical High, LL=Critical Low, AA=Critical Alpha-Numeric, C=Corrected, A=Abnormal LOINC Test Result Flag Range Units Date 1TSH 2.00 0.34-5.60 uIU/ml 02/15/2015 08:09 * Performing Lab Footnotes:* [facility] [id number] - [address] - [place] Vital Signs * No data [...]
--- OUTSIDE RECORDS SUMMARY | 2016-06-20 20:28 | XMS REPORT | Summary of Care ---
Author Author [facility], [facility] Unknown Address [address] [place], [place] [address] Phone Unavailable Care Team Providers Care Quick Mixer Operator Name Role Phone López Grant, Jose Cruz Unavailable Unavailable Outside, Physician PP Unavailable Unavailable Unavailable Functional Status Functional [...] Status: Active Dyspepsia (536.8, K30) Status: Active Tonsillar hypertrophy (474.11, J35.1) Status: Active Tonsillith (474.8, J35.8) Status: Active Nasal congestion (478.19, R09.81) Status: Active Chronic otitis media (382.9, H66.90) Status: Active Post-tonsillectomy pain (784.1, G89.18) Status: Active Hypertrophy of nasal turbinates (478.0, J34.3) Status: Active Chronic tonsillitis (474.00, J35.01) Status: Active Medications Name Dates Details Synthroid [...] Solution * Refills: 0 * Started 15-Mar-2015 ActiveCiprofloxacin HCl - 500 MG Oral Tablet Take 1 tablet twice daily * Quantity: 14 Refills: 0 Rikki Dawn M.D.* Started 18-Apr-2015 ActiveMethylPREDNISolone (Roni) 4 MG TABS TAKE DIRECTED ON PATIENT INSTRUCTION CARD. * Quantity: 1 Refills: 0 Rikki Dawn M.D.* Started 21-Apr-2015 Active Allergies and Adverse Reactions Name Dates [...] smoker Vital Signs Date Test Result Details No Known Vitals to report Results Date Description Value Details Results not documented Plan of Care Planned Observations* Name Dates Details Planned Goals not documented Goal Instructions * Instructions not documented Encounters Appointment; Rikki Dawn Encounter Diagnosis: Problem not documented On 12-May-2015 11:00 Appointment; Rikki Dawn Encounter Diagnosis: Problem not documented On 21-Apr-2015 10:15 Appointment; Rikki Dawn Encounter Diagnosis: Problem not documented On 15-Apr-2015 11:00 Appointment; Rikki Dawn Encounter Diagnosis: Problem not documented On 15-Mar-2015 10:15
--- OUTSIDE RECORDS SUMMARY | 2016-06-20 20:28 | XMS REPORT ---
Author Author [facility] Organization Unknown Address Unknown Phone Unavailable Care Team Providers Care Reflow Operator Name Role Phone UNASSIGNED DOCTOR , DOCTOR PP [phone] Reason For Visit Chief Complaint V72.31 Social History Functional Status Vital Signs Results Problems Encounter Diagnosis No relevant problems exist. Encounters Encounter Diagnosis No relevant problems exist. Plan of Care Procedures No relevant procedures performed. Immunizations No immunizations administered or ordered. Hospital Course Hospital Discharge Instructions Allergies, Adverse Reactions, Alerts * Latex Allergy has not been assessed. * IV Contrast Allergy has not been assessed. Medication Medication reconciliation has not been performed.
--- OUTSIDE RECORDS SUMMARY | 2016-06-20 20:28 | XMS REPORT | Continuity of Care Document ---
Author Author [facility] Organization [facility] Address [address] [place] [address] ;ext= Care Team Providers Care In Home Sales Consultant Name Role Phone SOREN MCGUIRE Admitting Physician Unavailable SOREN MCGUIRE Attending Physician Unavailable Hospital Admission Diagnosis Code Admission Diagnosis Date [id number] Diarrhea Social History Element Description Code Description Smoking Status Code System Start Date End Date Smoking Status [id number] Unknown if ever smoked SNOMED-CT Problems Code Code System Problem Name Start Date End Date Status 717750192 SNOMED-CT Tobacco dependence, continuous 03/11/2015 Active 454840401 SNOMED-CT Asthma 03/11/2015 Active 660183036 SNOMED-CT C/O - a headache 04/09/2014 Inactive 427206421 SNOMED-CT Asthma NOS Unknown Active 897678948 SNOMED-CT C/O - cough Unknown Inactive 79986645 SNOMED-CT Hypothyroidism Unknown Active 57023092 SNOMED-CT Polycystic ovaries Unknown Active Medications RxNorm Medication Dose Route Instructions Indications Start Date End Date Status Cetirizine 10 milligram Oral orally every day at bedtime allergies Active LANSINOH UD CREAM 100% THIN LAYER TOPICAL TOPICAL NEEDED as needed. 03/18/2015 Active 405069 montelukast 10 MG Oral Tablet 10 milligram Oral orally every evening Active 901056 Omeprazole 20 MG Delayed Release Oral Tablet 20 milligram Oral orally every evening Reflux during Active Synthroid 50 microgram Oral orally every day Active 962851 Acetaminophen 325 MG / Hydrocodone Bitartrate 10 MG Oral Tablet 1 tablet Oral orally every 6 hours as needed. pain No Longer Active 9166946 Acetaminophen 325 MG / Oxycodone Hydrochloride 10 MG Oral Tablet 2 TABLETS ORAL ORAL EVERY FOUR HOURS NEEDED as needed. 03/18/2015 No Longer Active 435 Albuterol 2 puffs Inhalation inhaled every 4 hours as needed. (unsure of dose) shortness of breath No Longer Active Cetirizine 10 milligram Oral orally every day as needed. allergy symptoms No Longer Active 17781 fluticasone 2 inhalation Inhalation inhaled every 12 [...] Oral orally every day No Longer Active 166151 pioglitazone 30 MG Oral Tablet 30 milligram Oral orally every day No Longer Active 747280 prednisolone 5 MG Oral Tablet 20 milligram Oral orally every 12 hours (9 days) (tapering dose) No Longer Active Formula 1 tablet tablet Oral orally every day at bedtime No Longer Active Previfem 1 tablet Oral orally every day No Longer Active 37445 salmeterol 2 inhalation Inhalation inhaled every 12 hours as needed. (unsure of dose) No Longer Active 5856836 Sulfacetamide Sodium 100 MG/ML Ophthalmic Solution 1 [...] of procedure instructions* * Performing Lab Footnotes:* [id number] [address] [place] [address] - [place] Order: Occult Blood Stool Legend: D=Delta, H=High, L=Low, HH=Critical High, LL=Critical Low, AA=Critical Alpha-Numeric, C=Corrected, A=Abnormal LOINC Test Result Flag Range Units Date 64108-4 1OB Pnl Stl Imm Negative NEGATIVE 04/08/2015 13:00 * Performing Lab Footnotes:* [facility] [id number] - [address] [place] Order: WBC Stool Legend: D=Delta, H=High, [...] warrants additional testing. * Performing Lab Footnotes:* [facility] [id number] - [address] [place] Vital Signs * No data in the system Plan of Care * No data in the system Procedures * No data in the system Encounters Date Code Diagnosis Status (ICD10) - A047 ENTEROCOLIT D/T CLOSTRIDM DIFFICILE Active Immunizations Vaccine Code Code System Vaccine Name Date Status 88 CVX influenza virus vaccine, NOS 12/10/2011 Completed Functional Status * No data in the system Hospital Discharge Instructions * No data in the system
--- OUTSIDE RECORDS SUMMARY | 2016-06-20 20:28 | XMS REPORT | Continuity of Care Document ---
Author Author [facility] Organization [facility] Address [address] [place] [address] ;ext= Care Team Providers Care Hob Grinder Name Role Phone ANGELICA BRAY Admitting Physician [phone] BRAYANGELICA Attending Physician [phone] Hospital Admission Diagnosis Code Admission Diagnosis Date Endocrine, nutritional and metabolic disease complicating , childbirth and puerperium Social History Element Description Code Description Smoking Status Code System Start Date End Date Smoking Status [id number] Heavy tobacco smoker SNOMED-CT Problems Code Code System Problem Name Start Date End Date Status 149784835 SNOMED-CT C/O - a headache 04/09/2014 Active 577810645 SNOMED-CT Asthma NOS Unknown Active 602923034 SNOMED-CT C/O - cough Unknown Active 07655241 SNOMED-CT Hypothyroidism Unknown Active 11034089 SNOMED-CT Polycystic ovaries Unknown Active Medications RxNorm Medication Dose Route Instructions Indications Start Date End Date Status 435 Albuterol 1 puff Inhalation inhaled every 4 hours as needed. (unsure of dose) shortness of breath Active Synthroid 50 microgram Oral orally every day Active 240508 Acetaminophen 325 MG / Hydrocodone Bitartrate 10 MG Oral Tablet 1 tablet Oral orally every 6 hours as needed. pain No Longer Active 12919 Cetirizine 10 milligram Oral orally every day as needed. allergy symptoms No Longer Active 37688 fluticasone 2 inhalation Inhalation inhaled every 12 [...] Oral orally every day No Longer Active 916990 pioglitazone 30 MG Oral Tablet 30 milligram Oral orally every day No Longer Active 19800610 prednisolone 5 MG Oral Tablet 20 milligram Oral orally every 12 hours (9 days) (tapering dose) No Longer Active Previfem 1 tablet Oral orally every day No Longer Active 55323 salmeterol 2 inhalation Inhalation inhaled every 12 hours as needed. (unsure of dose) No Longer Active 2003039 Sulfacetamide Sodium 100 MG/ML Ophthalmic Solution 1 drop Ophthalmic into the eye(s) every 3 hours (7 day) (left eye) No Longer Active Allergies Code Code System Allergy Substance Type Reaction Severity Start Date End Date Status 207719 RXNorm Augmentin Drug allergy intolerance Unknown 04/18/2013 Active 7986 RXNorm Penicillins Drug allergy Unknown 04/09/2014 Active Results Laboratory Results Order: T4 Free Legend: D=Delta, H=High, L=Low, HH=Critical High, LL=Critical Low, AA=Critical Alpha-Numeric, C=Corrected, A=Abnormal LOINC Test Result Flag Range Units Date 3024-7 1T4 Free SerPl-mCnc 0.74 0.61-1.12 ng/dl 02/15/2015 08:09 * Performing Lab Footnotes:* [id number] [address] [place] [address] [place] Order: Thyroid Stimulating Hormone Legend: D=Delta, H=High, L=Low, HH=Critical High, LL=Critical Low, AA=Critical Alpha-Numeric, C=Corrected, A=Abnormal LOINC Test Result Flag Range Units Date 1TSH 2.00 0.34-5.60 uIU/ml 02/15/2015 08:09 * Performing Lab Footnotes:* [address] [place] [address] Laboratory - [id number] - [address] [place] [address] [place] Vital Signs * No data in the system Plan of Care * No data in the system Procedures * No data in the system Encounters Date Code Diagnosis Status (ICD10) - M85296 ENDOCRN NUTR MET DZ COMP PG 3RD TRI Active Immunizations Vaccine Code Code System Vaccine Name Date Status 88 CVX influenza virus vaccine, NOS 12/10/2011 Completed Functional Status * No data in the system Hospital Discharge Instructions * No data in the system
--- OUTSIDE RECORDS SUMMARY | 2016-06-20 20:28 | XMS REPORT | Summary of Care ---
Author Author [facility] Grant, Rikki Johns Unknown Address [address] [place], [place] [address] Phone Unavailable Care Team Providers Care Heavy Duty Truck Mechanic Name Role Phone López Grant, Jose Cruz [...] M.D.* Started 18-Apr-2015 ActiveMethylPREDNISolone (Roni) 4 MG Oral Tablet TAKE DIRECTED ON PATIENT INSTRUCTION CARD. * [...] smoker Vital Signs Date Test Result Details 12-May-2015 11:35 BP Systolic 137 mm[Hg] Status: BP Diastolic 86 mm[Hg] Status: Heart Rate 79 /min Status: Weight 199 lb Status: Results Date Description Value Details [...]
--- OUTSIDE RECORDS SUMMARY | 2016-06-20 20:28 | XMS REPORT | Continuity of Care Document ---
Author Author [facility] Organization [facility] Address [address] [place] [address] ;ext= Care Team Providers Care High Wire Artist Name Role Phone Silvia BURNETT Admitting Physician [phone] Silvia BURNETT Attending Physician [phone] Hospital Admission Diagnosis Code Admission Diagnosis Date ENCOUNTER FOR SCREENING OF MOTHER Social History Element Description Code Description Smoking Status Code System Start Date End Date Smoking Status 728985594 Unknown if ever smoked SNOMED-CT Problems Code Code System Problem Name Start Date End Date Status 876531783 SNOMED-CT C/O - a headache 04/09/2014 Active 874680662 SNOMED-CT Asthma NOS Unknown Active 694668352 SNOMED-CT C/O - cough Unknown Active 59431737 SNOMED-CT Hypothyroidism Unknown Active 10512910 SNOMED-CT Polycystic ovaries Unknown Active Medications RxNorm Medication Dose Route Instructions Indications Start Date End Date Status 435 Albuterol 1 puff Inhalation inhaled every 4 hours as needed. (unsure of dose) shortness of breath Active Synthroid 50 microgram Oral orally every day Active 128042 Acetaminophen 325 MG / Hydrocodone Bitartrate 10 MG Oral Tablet 1 tablet Oral orally every 6 hours as needed. pain No Longer Active 38737 Cetirizine 10 milligram Oral orally every day as needed. allergy symptoms No Longer Active 15588 fluticasone 2 inhalation Inhalation inhaled every 12 [...] Oral orally every day No Longer Active 926342 pioglitazone 30 MG Oral Tablet 30 milligram Oral orally every day No Longer Active 19800610 prednisolone 5 MG Oral Tablet 20 milligram Oral orally every 12 hours (9 days) (tapering dose) No Longer Active Previfem 1 tablet Oral orally every day No Longer Active 25817 salmeterol 2 inhalation Inhalation inhaled every 12 hours as needed. (unsure of dose) No Longer Active 1292254 Sulfacetamide Sodium 100 MG/ML Ophthalmic Solution 1 drop Ophthalmic into the eye(s) every 3 hours (7 day) (left eye) No Longer Active Allergies Code Code System Allergy Substance Type Reaction Severity Start Date End Date Status 674605 RXNorm Augmentin Drug allergy intolerance Unknown 04/18/2013 Active 7986 RXNorm Penicillins Drug allergy Unknown 04/09/2014 Active Results * No data in the system Vital Signs * No data in the system Plan of Care * No data in the system Procedures * No data in the system Encounters Date Code Diagnosis Status (ICD10) - Z36 ENC FOR SCREENING MOTHER Active Immunizations Vaccine Code Code System Vaccine Name Date Status 88 CVX influenza virus vaccine, NOS 12/10/2011 Completed Functional Status * No data in the system Hospital Discharge Instructions * No data in the system
--- OUTSIDE RECORDS SUMMARY | 2016-06-20 20:28 | XMS REPORT | Continuity of Care Document ---
Author Author [facility] Organization [facility] Address [address] [place] [address] ;ext= Care Team Providers Care Deicer Inspector Pneumatic Name Role Phone Silvia FONTAINE Admitting Physician [phone] Silvia FONTANIE Attending Physician [phone] Hospital Admission Diagnosis * No data in the System Social History Element Description Code Description Smoking Status Code System Start Date End Date Smoking Status [id number] Heavy tobacco smoker SNOMED-CT Problems Code Code System Problem Name Start Date End Date Status 584218938 SNOMED-CT Tobacco dependence, continuous 03/11/2015 Active 693601327 SNOMED-CT Asthma 03/11/2015 Active 691670093 SNOMED-CT C/O - a headache 04/09/2014 Inactive 532695319 SNOMED-CT Asthma NOS Unknown Active 048303144 SNOMED-CT C/O - cough Unknown Inactive 86475018 SNOMED-CT Hypothyroidism Unknown Active 16438382 SNOMED-CT Polycystic ovaries Unknown Active Medications RxNorm Medication Dose Route Instructions Indications Start Date End Date Status 0443828 Acetaminophen 325 MG / Oxycodone Hydrochloride 10 MG Oral Tablet 2 TABLETS ORAL ORAL EVERY FOUR HOURS NEEDED as needed. 03/18/2015 Active Cetirizine 10 milligram Oral orally every day at bedtime allergies Active 174149 Ibuprofen 800 MG Oral Tablet 800 MG ORAL ORAL EVERY EIGHT HOURS NEEDED as needed. 03/18/2015 Active LANSINOH UD CREAM 100% THIN LAYER TOPICAL TOPICAL NEEDED as needed. 03/18/2015 Active 20010414 montelukast 10 MG Oral Tablet 10 milligram Oral orally every evening Active 168428 Omeprazole 20 MG Delayed Release Oral Tablet 20 milligram Oral orally every evening Reflux during Active Synthroid 50 microgram Oral orally every day Active 874107 Acetaminophen 325 MG / Hydrocodone Bitartrate 10 MG Oral Tablet 1 tablet Oral orally every 6 hours as needed. pain No Longer Active 435 Albuterol 2 puffs Inhalation inhaled every 4 hours as needed. (unsure of dose) shortness of breath No Longer Active 91098 Cetirizine 10 milligram Oral orally every day as needed. allergy symptoms No Longer Active 44731 fluticasone 2 inhalation Inhalation inhaled every 12 [...] Oral orally every day No Longer Active 315789 pioglitazone 30 MG Oral Tablet 30 milligram Oral orally every day No Longer Active 207448 prednisolone 5 MG Oral Tablet 20 milligram Oral orally every 12 hours (9 days) (tapering dose) No Longer Active Formula 1 tablet tablet Oral orally every day at bedtime No Longer Active Previfem 1 tablet Oral orally every day No Longer Active 99015 salmeterol 2 inhalation Inhalation inhaled every 12 hours as needed. (unsure of dose) No Longer Active 7800232 Sulfacetamide Sodium 100 MG/ML Ophthalmic Solution 1 [...] Bld Auto 10.9 4.5-11.0 10^3/mm3 03/19/2015 06:50 04020-7 1Retics # Auto 3.70 L 4.00-5.20 10^6/mm3 03/19/2015 06:50 54747-7 1Hgb BldV-mCnc 12.1 12.0-16.0 g/dl 03/19/2015 06:50 [...] Bld Auto 159 150-450 10^3/mm3 03/19/2015 06:50 99508-0 1PMV Bld 11.4 H 7.4-10.4 03/19/2015 06:50 88422-5 1Neutrophils # CSF 67.6 40.0-74.0 % 03/19/2015 06:50 1LYMPH% 20.6 14.0-46.0 % 03/19/2015 06:50 44348-7 1CD43 Ag Tiss Ql ImStn 9.8 4.0-13.0 % 03/19/2015 06:50 711-2 1Eosinophil # Bld Auto 1.8 0.0-4.0 % 03/19/2015 06:50 704-7 1Basophils # Bld Auto 0.2 <=3.0 % 03/19/2015 06:50 751-8 1Neutrophils # Bld Auto 7.3 1.8-7.8 03/19/2015 06:50 56818-5 1Lymphocytes # Bld 2.2 0.7-4.5 03/19/2015 06:50 47970-9 1CD43 Ag Tiss Ql ImStn 1.1 H 0.1-1.0 03/19/2015 06:50 711-2 1Eosinophil # Bld Auto 0.20 <=4.00 03/19/2015 06:50 704-7 1Basophils # Bld Auto 0.02 <=0.20 03/19/2015 06:50 2MANDIFF N 03/19/2015 06:50 52620-8 2RBC Bld Auto N 03/19/2015 06:50 * Performing Lab Footnotes:* [facility] [id number] [address] - [place] * [facility] - [id number] - [address] - Metal Rivet Machine Operator:, Louise Rowe MD - [place] Order: Hemoglobin and Hematocrit Legend: D=Delta, H=High, L=Low, HH=Critical High, LL=Critical Low, AA=Critical Alpha-Numeric, C=Corrected, A=Abnormal LOINC Test Result Flag Range Units Date 83536-1 1Hgb BldV-mCnc 12.4 12.0-16.0 g/dl 03/18/2015 15:48 4544-3 1Hct VFr Bld Auto 36.1 36.0-46.0 % 03/18/2015 15:48 * Performing Lab Footnotes:* [facility] [id number] - [address] [place] Order: Urinalysis Stewart Insertion * Order Result Comment:* 1Urine microscopic not indicated. Legend: D=Delta, H=High, L=Low, HH=Critical High, LL=Critical Low, AA=Critical Alpha-Numeric, C=Corrected, A=Abnormal LOINC Test Result Flag Range Units Date 5778-6 1Color Ur Light Straw 03/18/2015 11:10 54860-0 1Clarity Ur Clear 03/18/2015 11:10 2966-0 1Sp Gr 24h Ur 1.015 1.005-1.030 03/18/2015 11:10 2756-5 1pH Ur 7.0 5.0-7.0 03/18/2015 11:10 51057-6 1Leukocyte esterase Ur-aCnc Negative NEGATIVE 03/18/2015 11: 10 95550-6 1Nitrite Ur Ql Strip.auto Negative NEGATIVE 03/18/2015 11:10 51413-3 1Prot Tiss-mCnt Negative NEGATIVE 03/18/2015 11:10 2349-9 1Glucose Ur Ql Negative NEGATIVE 03/18/2015 11:10 61001-3 1MEK Ur-mCnc Negative NEGATIVE 03/18/2015 11:10 1977-8 1Bilirub Ur Ql Negative NEGATIVE 03/18/2015 11:10 933-2 1Bld Prod Typ BPU Trace-intact * NEGATIVE 03/18/2015 11:10 67762-7 1Urobilinogen Ur Ql 0.2 <=1.0 03/18/2015 11:10 75070-5 1C trach UrnS Ql Cult N 03/18/2015 11:10 * Performing Lab Footnotes:* [facility] - [id number] - [address] - [place] Order: Activated Partial Thromboplastin Time Legend: D=Delta, H=High, L=Low, HH=Critical High, LL=Critical Low, AA=Critical Alpha-Numeric, C=Corrected, A=Abnormal LOINC Test Result Flag Range Units Date 1PTT 24.5 24.0-35.0 Seconds 03/18/2015 09:55 * Performing Lab Footnotes:* [facility] - [id number] - [address] - [place] Order: Protime With INR Legend: D=Delta, H=High, L=Low, HH=Critical High, LL=Critical Low, AA=Critical Alpha-Numeric, C=Corrected, A=Abnormal LOINC Test Result Flag Range Units Date 1PT 9.2 9.1-11.6 Seconds 03/18/2015 09:55 26319-3 1INR p heparin adsorption PPP 0.92 0.90-1.15 03/18/2015 09:55 * Performing Lab Footnotes:* [facility] - [id number] - [address] [place], [place] [address] [place] [address] - [place] ROW[place] Vital Signs Vitals Value Date Body Temperature 97.5 F 03/20/2015 Respiratory Rate 18 03/20/2015 O2% BldC Oximetry 98 03/20/2015 BP Systolic 134 mmHg 03/20/2015 BP Diastolic 71 mmHg 03/20/2015 Height 64 in 03/18/2015 Weight Measured 210 lbs 03/18/2015 BSA (Body Surface Area) 1.28464 03/18/2015 BMI (Body Mass Index) 36.2 03/18/2015 [...] Procedure Name Target Site Date of Procedure [id number] SNOMED section 03/18/2015 Encounters * No data in the system [...]
--- OUTSIDE RECORDS SUMMARY | 2016-06-20 20:28 | XMS REPORT ---
Author Author [facility] Organization Unknown Address Unknown Phone Unavailable Care Team Providers Care Louver Mortiser Operator Name Role Phone UNASSIGNED DOCTOR , DOCTOR PP [phone] Reason For Visit Chief Complaint Z01.411 R87.610 Social History Functional Status Vital Signs Results [...]
--- OUTSIDE RECORDS SUMMARY | 2016-06-20 20:28 | XMS REPORT | Continuity of Care Document ---
Author Author [facility] Organization [facility] Address [address] [place] [address] ;ext= Care Team Providers Care Vibration Technician Name Role Phone SOREN MCGUIRE Admitting Physician Unavailable SOREN MCGUIRE Attending Physician Unavailable ALIZE RESENDIZ Primary Care Physician [phone] Hospital Admission Diagnosis Code Admission Diagnosis Date [id number] Vomiting Social History Element Description Code Description Smoking Status Code System Start Date End Date Smoking Status [id number] Heavy tobacco smoker SNOMED-CT Problems Code Code System Problem Name Start Date End Date Status 523153869 SNOMED-CT Tobacco dependence, continuous 03/11/2015 Active 532932588 SNOMED-CT Asthma 03/11/2015 Active 175822293 SNOMED-CT C/O - a headache 04/09/2014 Inactive 125766556 SNOMED-CT Asthma NOS Unknown Active 386166189 SNOMED-CT C/O - cough Unknown Inactive 51679443 SNOMED-CT Hypothyroidism Unknown Active 42247200 SNOMED-CT Polycystic ovaries Unknown Active Medications RxNorm Medication Dose Route Instructions Indications Start Date End Date Status Cetirizine 10 milligram Oral orally every day at bedtime allergies Active LANSINOH UD CREAM 100% THIN LAYER TOPICAL TOPICAL NEEDED as needed. 03/18/2015 Active 357728 montelukast 10 MG Oral Tablet 10 milligram Oral orally every evening Active 464570 Omeprazole 20 MG Delayed Release Oral Tablet 20 milligram Oral orally every evening Reflux during Active Synthroid 50 microgram Oral orally every day Active 243284 Acetaminophen 325 MG / Hydrocodone Bitartrate 10 MG Oral Tablet 1 tablet Oral orally every 6 hours as needed. pain No Longer Active 9280310 Acetaminophen 325 MG / Oxycodone Hydrochloride 10 MG Oral Tablet 2 TABLETS ORAL ORAL EVERY FOUR HOURS NEEDED as needed. 03/18/2015 No Longer Active 435 Albuterol 2 puffs Inhalation inhaled every 4 hours as needed. (unsure of dose) shortness of breath No Longer Active 63295 Cetirizine 10 milligram Oral orally every day as needed. allergy symptoms No Longer Active 80077 fluticasone 2 inhalation Inhalation inhaled every 12 [...] Oral orally every day No Longer Active 001346 pioglitazone 30 MG Oral Tablet 30 milligram Oral orally every day No Longer Active 294454 prednisolone 5 MG Oral Tablet 20 milligram Oral orally every 12 hours (9 days) (tapering dose) No Longer Active Formula 1 tablet tablet Oral orally every day at bedtime No Longer Active Previfem 1 tablet Oral orally every day No Longer Active 63254 salmeterol 2 inhalation Inhalation inhaled every 12 hours as needed. (unsure of dose) No Longer Active 2045723 Sulfacetamide Sodium 100 MG/ML Ophthalmic Solution 1 drop Ophthalmic into the eye(s) every 3 hours (7 day) (left eye) No Longer Active Allergies * No Known Allergies Results Laboratory Results Order: HCG Qualatative Urine Legend: D=Delta, H=High, L=Low, HH=Critical High, LL=Critical Low, AA=Critical Alpha-Numeric, C=Corrected, A=Abnormal LOINC Test Result Flag Range Units Date 1HCG SerPl-Imp Negative NEGATIVE 04/07/2015 16:15 * Performing Lab Footnotes:* 1[facility] - [id number] - [address] [place] [address] - [place] Order: Urinalysis With Microscopic Exam Legend: D=Delta, H=High, L=Low, HH=Critical High, LL=Critical Low, AA=Critical Alpha-Numeric, C=Corrected, A=Abnormal LOINC Test Result Flag Range Units Date 5778-6 Color Ur Yellow 04/07/2015 16:15 57344-7 Clarity Ur Clear 04/07/2015 16:15 2966-0 Sp Gr 24h Ur <=1.005 1.005-1.030 04/07/2015 16:15 2756-5 pH Ur 5.5 5.0-7.0 04/07/2015 16:15 44807-5 Leukocyte esterase Ur-aCnc Negative NEGATIVE 04/07/2015 16:15 82708-2 Nitrite Ur Ql Strip.auto Negative NEGATIVE 04/07/2015 16:15 27656-2 Prot Tiss-mCnt Negative NEGATIVE 04/07/2015 16:15 2349-9 Glucose Ur Ql Negative NEGATIVE 04/07/2015 16:15 88401-7 MEK Ur-mCnc Negative NEGATIVE 04/07/2015 16:15 1977-8 Bilirub Ur Ql Negative NEGATIVE 04/07/2015 16:15 933-2 Bld Prod Typ BPU Moderate * NEGATIVE 04/07/2015 16:15 94818-9 Urobilinogen Ur Ql 0.2 <=1.0 04/07/2015 16:15 1WBC_UM 0-2 * 0-5 /HPF 04/07/2015 16:15 5808-1 1RBC # UrnS HPF 0-2 * 0-5 /HPF 04/07/2015 16:15 5787-7 1Epi Cells #/area UrnS HPF 5-10 * 0-2 /HPF 04/07/2015 16:15 92492-1 1Trans Cells #/area UrnS HPF 0-2 04/07/2015 16:15 90341-2 1C trach UrnS Ql Cult N 04/07/2015 16:15 * Performing Lab Footnotes:* 1[facility] - [id number] - [address] - [place] Order: Amylase Legend: D=Delta, H=High, L=Low, HH=Critical High, LL=Critical Low, AA=Critical Alpha-Numeric, C=Corrected, A=Abnormal LOINC Test Result Flag Range Units Date 17988 1Amylase SerPl-cCnc 52 29-103 u/l 04/07/2015 16:11 * Performing Lab Footnotes:* 1[facility] - [id number] - [address] [place] [address] - [place] Order: CBC With Automated Differential Legend: D=Delta, H=High, L=Low, HH=Critical High, LL=Critical Low, AA=Critical Alpha-Numeric, C=Corrected, A=Abnormal LOINC Test Result Flag Range Units Date 6690-2 1WBC # Bld Auto 7.0 4.5-11.0 10^3/mm3 04/07/2015 16:11 71994-0 1Retics # Auto 4.93 4.00-5.20 10^6/mm3 04/07/2015 16:11 85565-6 1Hgb BldV-mCnc 15.5 12.0-16.0 g/dl 04/07/2015 16:11 [...] Bld Auto 335 150-450 10^3/mm3 04/07/2015 16:11 55211-1 1PMV Bld 10.7 H 7.4-10.4 04/07/2015 16:11 25978-2 1Neutrophils # CSF 76.5 H 40.0-74.0 % 04/07/2015 16:11 1LYMPH% 13.1 L 14.0-46.0 % 04/07/2015 16:11 75130-9 1CD43 Ag Tiss Ql ImStn 6.7 4.0-13.0 % 04/07/2015 16:11 711-2 1Eosinophil # Bld Auto 3.4 0.0-4.0 % 04/07/2015 16:11 704-7 1Basophils # Bld Auto 0.3 <=3.0 % 04/07/2015 16:11 751-8 1Neutrophils # Bld Auto 5.4 1.8-7.8 04/07/2015 16:11 32767-2 1Lymphocytes # Bld 0.9 0.7-4.5 04/07/2015 16:11 05814-3 1CD43 Ag Tiss Ql ImStn 0.5 0.1-1.0 04/07/2015 16:11 711-2 1Eosinophil # Bld Auto 0.24 <=4.00 04/07/2015 16:11 704-7 1Basophils # Bld Auto 0.02 <=0.20 04/07/2015 16:11 2MANDIFF N 04/07/2015 16:11 37988-8 2RBC Bld Auto N 04/07/2015 16:11 * Performing Lab Footnotes:* 1[facility] - [id number] - [address] - [place] * 2[facility] - [id number] - [address] - Medication Aide:, Lexie Rowe MD - [place] Order: Comprehensive Metabolic Panel Legend: D=Delta, H=High, L=Low, HH=Critical High, LL=Critical Low, AA=Critical Alpha-Numeric, C=Corrected, A=Abnormal LOINC Test Result Flag Range Units Date 2344-09 1Glucose SerPl-mCnc 90 70-105 mg/dl 04/07/2015 16:11 3094-0 1BUN SerPl-mCnc 12 7-25 mg/dl 04/07/2015 16:11 2160-0 1Creat SerPl-mCnc 0.8 0.6-1.3 mg/dl 04/07/2015 16:11 38138-5 1Creat/Urea nit SerPl 15 13-39 04/07/2015 16:11 2951-2 1Sodium SerPl-sCnc 135 135-145 mmol/L 04/07/2015 16:11 95508-6 1Potassium SerPl-mCnc 4.0 3.5-5.1 mmol/L 04/07/2015 16:11 2075-0 1Chloride SerPl-sCnc 100 98-107 mmol/l 04/07/2015 16:11 2028-9 1CO2 SerPl-sCnc 25 21-31 mmol/l 04/07/2015 16:11 04444-2 1Anion Gap SerPl-sCnc 14 9-16 mmol/L 04/07/2015 16:11 2692-2 1Osmolality SerPl 279 277-298 mOsm/kg 04/07/2015 16:11 78984-0 1Calcium SerPl-mCnc 9.6 8.2-10.0 mg/dl 04/07/2015 16:11 [...] GFRunits 04/07/2015 16:11 * Performing Lab Footnotes:* 1[facility] - [id number] - [address] - [place] Order: Lipase Legend: D=Delta, H=High, L=Low, HH=Critical High, LL=Critical Low, AA=Critical Alpha-Numeric, C=Corrected, A=Abnormal LOINC Test Result Flag Range Units Date 3040-3 1Lipase SerPl-cCnc 31 11-82 U/L 04/07/2015 16:11 * Performing Lab Footnotes:* 1[facility] - [id number] - [address] [address] [place] - [place] Radiology Results Order: CTAPC CT Abd Pelvis W/Contrast* Exam Completion Date:04/07/2015 17:37 INDICATION: Abdominal pain - vomiting diarrhea COMPARISON: [facility] CT Abd Pelvis W/Contrast: CT with oral and IV contrast. There is a [facility]. Cholecystectomy. Prominent endometrium is of uncertain significance.Minor infiltration in the subcutaneous fat of the lower abdominal wallprobably from surgery. [facility] suggested mild diverticulitis. This wouldneed clinical correlation. No evidence of appendicitis or bowel obstruction.No evidence of a pelvic mass. Liver, spleen, pancreas, kidneys, bladder showno acute disease. Lung bases are clear.IMPRESSION: [facility] suggested diverticulitis.Released By RAYMUNDO DOTSONate: 04/08/2015 08:35 Order: CXR2VW Chest x-ray 2 views* Exam Completion Date:04/07/2015 16:46 INDICATION: Cough, abdominal pain COMPARISON: 04/24/2014Chest x-ray 2 views: There is a [facility] report. Heart size is within anormal range. The lungs are normally expanded and clear. There is noevidence of a pleural effusion.IMPRESSION: Negative chestReleased By JESSICA NIÑO, MDDate: 2015 08:31 Vital Signs Vitals Value Date Body Temperature 98.4 F 04/07/2015 Respiratory Rate 16 04/07/2015 O2% BldC Oximetry 96 04/07/2015 BP Systolic 131 mmHg 04/07/2015 BP Diastolic 93 mmHg 04/07/2015 Height 63 in 04/07/2015 Weight Measured 197 lbs 04/07/2015 BSA (Body Surface Area) 1.48628 04/07/2015 BMI (Body Mass Index) 34.9 04/07/2015 Plan of Care * No data in the system Procedures * No data in the system Encounters Date Code Diagnosis Status (ICD10) - K5792 DVTRCLI PRT UNS NO PERF/ABSC W/O BL Active Immunizations Vaccine Code Code System Vaccine Name Date Status 88 CVX influenza virus vaccine, NOS 12/10/2011 Completed Functional Status * No data in the system Hospital Discharge Instructions * No data in the system
--- OUTSIDE RECORDS SUMMARY | 2016-06-20 20:28 | XMS REPORT | Continuity of Care Document ---
Author Author [facility] Organization [facility] Address [address] [place] [address] ;ext= Care Team Providers Care Folder Machine Adjuster Name Role Phone Carole CALERO Admitting Physician [phone] Carole CALERO Attending Physician [phone] Radha BRANTLEY CP [phone] Hospital Admission Diagnosis Code Admission Diagnosis Date ENCOUNTER FOR OTHER PREPROCEDURAL EXAMINATION Social History Element Description Code Description Smoking Status Code System Start Date End Date Smoking Status [id number] Heavy tobacco smoker SNOMED-CT Problems Code Code System Problem Name Start Date End Date Status 952017140 SNOMED-CT Tobacco dependence, continuous 03/11/2015 Active 321294957 SNOMED-CT Asthma 03/11/2015 Active 933131838 SNOMED-CT C/O - a headache 04/09/2014 Inactive 414369549 SNOMED-CT Asthma NOS Unknown Active 511200820 SNOMED-CT C/O - cough Unknown Inactive 12111618 SNOMED-CT Hypothyroidism Unknown Active 90223854 SNOMED-CT Polycystic ovaries Unknown Active Medications RxNorm Medication Dose Route Instructions Indications Start Date End Date Status Cetirizine 10 milligram Oral orally every day at bedtime allergies Active LANSINOH UD CREAM 100% THIN LAYER TOPICAL TOPICAL NEEDED as needed. 03/18/2015 Active 665798 montelukast 10 MG Oral Tablet 10 milligram Oral orally every evening Active 779208 Omeprazole 20 MG Delayed Release Oral Tablet 20 milligram Oral orally every evening Reflux during Active Synthroid 50 microgram Oral orally every day Active 669525 Acetaminophen 325 MG / Hydrocodone Bitartrate 10 MG Oral Tablet 1 tablet Oral orally every 6 hours as needed. pain No Longer Active 7950693 Acetaminophen 325 MG / Oxycodone Hydrochloride 10 MG Oral Tablet 2 TABLETS ORAL ORAL EVERY FOUR HOURS NEEDED as needed. 03/18/2015 No Longer Active 435 Albuterol 2 puffs Inhalation inhaled every 4 hours as needed. (unsure of dose) shortness of breath No Longer Active Cetirizine 10 milligram Oral orally every day as needed. allergy symptoms No Longer Active 07315 fluticasone 2 inhalation Inhalation inhaled every 12 [...] Oral orally every day No Longer Active 230989 pioglitazone 30 MG Oral Tablet 30 milligram Oral orally every day No Longer Active 193823 prednisolone 5 MG Oral Tablet 20 milligram Oral orally every 12 hours (9 days) (tapering dose) No Longer Active Formula 1 tablet tablet Oral orally every day at bedtime No Longer Active Previfem 1 tablet Oral orally every day No Longer Active 81490 salmeterol 2 inhalation Inhalation inhaled every 12 hours as needed. (unsure of dose) No Longer Active 3784825 Sulfacetamide Sodium 100 MG/ML Ophthalmic Solution 1 drop Ophthalmic into the eye(s) every 3 hours (7 day) (left eye) No Longer Active Allergies * No Known Allergies Results Laboratory Results Order: Thyroid Stimulating Hormone Legend: D=Delta, H=High, L=Low, HH=Critical High, LL=Critical Low, AA=Critical Alpha-Numeric, C=Corrected, A=Abnormal LOINC Test Result Flag Range Units Date 1TSH 1.92 0.34-5.60 uIU/ml 04/12/2015 13:04 * Performing Lab Footnotes:* [facility] - [id number] - [address] [place] [address] - [place] Order: CBC With Automated Differential Legend: D=Delta, H=High, L=Low, HH=Critical High, LL=Critical Low, AA=Critical Alpha-Numeric, C=Corrected, A=Abnormal LOINC Test Result Flag Range Units Date 6690-2 1WBC # Bld Auto 9.4 4.5-11.0 10^3/mm3 04/12/2015 13:03 76246-3 1Retics # Auto 4.70 4.00-5.20 10^6/mm3 04/12/2015 13:03 91998-8 1Hgb BldV-mCnc 14.7 12.0-16.0 g/dl 04/12/2015 13:03 4544-3 1Hct VFr Bld Auto 43.7 36.0-46.0 % 04/12/2015 13:03 787-2 1MCV RBC Auto 93.0 82.0-100.0 10^6/mm3 04/12/2015 13:03 785-6 1MCH RBC Qn Auto 31.3 27.0-34.0 pg 04/12/2015 13:03 786-4 1MCHC RBC Auto-mCnc 33.6 32.0-36.0 g/dl 04/12/2015 13:03 788-0 1RDW RBC Auto-Rto 12.9 11.7-15.0 % 04/12/2015 13:03 777-3 1Platelet # Bld Auto 298 150-450 10^3/mm3 04/12/2015 13:03 82153-1 1PMV Bld 11.0 H 7.4-10.4 04/12/2015 13:03 29122-7 1Neutrophils # CSF 62.5 40.0-74.0 % 04/12/2015 13:03 1LYMPH% 26.7 14.0-46.0 % 04/12/2015 13:03 28055-3 1CD43 Ag Tiss Ql ImStn 8.0 4.0-13.0 % 04/12/2015 13:03 711-2 1Eosinophil # Bld Auto 2.3 0.0-4.0 % 04/12/2015 13:03 704-7 1Basophils # Bld Auto 0.5 <=3.0 % 04/12/2015 13:03 751-8 1Neutrophils # Bld Auto 5.9 1.8-7.8 04/12/2015 13:03 12435-8 1Lymphocytes # Bld 2.5 0.7-4.5 04/12/2015 13:03 12127-5 1CD43 Ag Tiss Ql ImStn 0.8 0.1-1.0 04/12/2015 13:03 711-2 1Eosinophil # Bld Auto 0.22 <=4.00 04/12/2015 13:03 704-7 1Basophils # Bld Auto 0.05 <=0.20 04/12/2015 13:03 2MANDIFF N 04/12/2015 13:03 27379-2 2RBC Bld Auto N 04/12/2015 13:03 * Performing Lab Footnotes:* [facility] - [id number] - [address] [place] [address] - [place] * [address] [place] [address] Laboratory - [id number] - [address] [place] [address] - Nuclear Equipment Test Engineer:, Lexie Rowe MD - [place] Order: HCG Qualatative Legend: D=Delta, H=High, L=Low, HH=Critical High, LL=Critical Low, AA=Critical Alpha-Numeric, C=Corrected, A=Abnormal LOINC Test Result Flag Range Units Date 1Manual diff Bld Negative 04/12/2015 13:03 * Performing Lab Footnotes:* [facility] - [id number] - [address] [place] [address] - [place] Vital Signs * No data in the system Plan of Care * No data in the system Procedures * No data in the system Encounters Date Code Diagnosis Status (ICD10) - V90050 ENC OTH PREPROCEDURAL EXAMINATION Active Immunizations Vaccine Code Code System Vaccine Name Date Status 88 CVX influenza virus vaccine, NOS 12/10/2011 Completed Functional Status * No data in the system Hospital Discharge Instructions * No data in the system
--- OUTSIDE RECORDS SUMMARY | 2016-06-20 20:28 | XMS REPORT | Summary of Care ---
Author Author [facility], [facility] Unknown Address [address] [place], [place] [id number] Phone Unavailable Care Team Providers Care Metal Sprayer Name Role Phone Verify PCP PP Unavailable [...]
--- OUTSIDE RECORDS SUMMARY | 2016-06-20 20:28 | XMS REPORT | Continuity of Care Document ---
Author Author [facility] Organization [facility] Address [address] [place] [address] ;ext= Care Team Providers Care Commercial Marketing Specialist Name Role Phone Silvia BURNETT Admitting Physician [phone] Silvia BURNETT Attending Physician [phone] Hospital Admission Diagnosis Code Admission Diagnosis Date ENCOUNTER FOR SCREENING OF MOTHER Social History Element Description Code Description Smoking Status Code System Start Date End Date Smoking Status 864414105 Unknown if ever smoked SNOMED-CT Problems Code Code System Problem Name Start Date End Date Status 262952918 SNOMED-CT C/O - a headache 04/09/2014 Active 387915652 SNOMED-CT Asthma NOS Unknown Active 146204747 SNOMED-CT C/O - cough Unknown Active 98190897 SNOMED-CT Hypothyroidism Unknown Active 54259294 SNOMED-CT Polycystic ovaries Unknown Active Medications RxNorm Medication Dose Route Instructions Indications Start Date End Date Status 435 Albuterol 1 puff Inhalation inhaled every 4 hours as needed. (unsure of dose) shortness of breath Active Synthroid 50 microgram Oral orally every day Active 031338 Acetaminophen 325 MG / Hydrocodone Bitartrate 10 MG Oral Tablet 1 tablet Oral orally every 6 hours as needed. pain No Longer Active 67656 Cetirizine 10 milligram Oral orally every day as needed. allergy symptoms No Longer Active 14813 fluticasone 2 inhalation Inhalation inhaled every 12 [...] Oral orally every day No Longer Active 183106 pioglitazone 30 MG Oral Tablet 30 milligram Oral orally every day No Longer Active 19800610 prednisolone 5 MG Oral Tablet 20 milligram Oral orally every 12 hours (9 days) (tapering dose) No Longer Active Previfem 1 tablet Oral orally every day No Longer Active 05403 salmeterol 2 inhalation Inhalation inhaled every 12 hours as needed. (unsure of dose) No Longer Active 4840294 Sulfacetamide Sodium 100 MG/ML Ophthalmic Solution 1 drop Ophthalmic into the eye(s) every 3 hours (7 day) (left eye) No Longer Active Allergies Code Code System Allergy Substance Type Reaction Severity Start Date End Date Status 756241 RXNorm Augmentin Drug allergy intolerance Unknown 04/18/2013 Active 7986 RXNorm Penicillins Drug allergy Unknown 04/09/2014 Active Results Microbiology Results w Susceptibilities Order: Culture Group B Streptococcus * Culture Observations:* 1Final: No Group B Streptococcus isolated * Performing Lab Footnotes:* [facility] [id number] - [address] [place] [address] - [place] LOPEZ Vital Signs * No [...]
--- OUTSIDE RECORDS SUMMARY | 2016-06-20 20:29 | XMS REPORT | Continuity of Care Document ---
Author Author [facility] Organization [facility] Address [address] [place] [address] ;ext= Care Team Providers Care Parakeet Raiser Name Role Phone Carole CALERO Admitting Physician [phone] Carole CALERO Attending Physician [phone] Radha BRANTLEY CP [phone] Hospital Admission Diagnosis * No data in the System Social History Element Description Code Description Smoking Status Code System Start Date End Date Smoking Status [id number] Heavy tobacco smoker SNOMED-CT Problems Code Code System Problem Name Start Date End Date Status 656331251 SNOMED-CT Tobacco dependence, continuous 03/11/2015 Active 007637225 SNOMED-CT Asthma 03/11/2015 Active 010470832 SNOMED-CT C/O - a headache 04/09/2014 Inactive 786331369 SNOMED-CT Asthma NOS Unknown Active 919902369 SNOMED-CT C/O - cough Unknown Inactive 01579197 SNOMED-CT Hypothyroidism Unknown Active 88255320 SNOMED-CT Polycystic ovaries Unknown Active Medications RxNorm Medication Dose Route Instructions Indications Start Date End Date Status 93285 Cetirizine 10 milligram Oral orally every day at bedtime allergies Active LANSINOH UD CREAM 100% THIN LAYER TOPICAL TOPICAL NEEDED as needed. 03/18/2015 Active 193719 montelukast 10 MG Oral Tablet 10 milligram Oral orally every evening Active 927842 Omeprazole 20 MG Delayed Release Oral Tablet 20 milligram Oral orally every evening Reflux during Active Synthroid 50 microgram Oral orally every day Active 265534 Acetaminophen 325 MG / Hydrocodone Bitartrate 10 MG Oral Tablet 1 tablet Oral orally every 6 hours as needed. pain No Longer Active 5819656 Acetaminophen 325 MG / Oxycodone Hydrochloride 10 MG Oral Tablet 2 TABLETS ORAL ORAL EVERY FOUR HOURS NEEDED as needed. 03/18/2015 No Longer Active 435 Albuterol 2 puffs Inhalation inhaled every 4 hours as needed. (unsure of dose) shortness of breath No Longer Active Cetirizine 10 milligram Oral orally every day as needed. allergy symptoms No Longer Active 99320 fluticasone 2 inhalation Inhalation inhaled every 12 [...] Oral orally every day No Longer Active 285648 pioglitazone 30 MG Oral Tablet 30 milligram Oral orally every day No Longer Active 626872 prednisolone 5 MG Oral Tablet 20 milligram Oral orally every 12 hours (9 days) (tapering dose) No Longer Active Formula 1 tablet tablet Oral orally every day at bedtime No Longer Active Previfem 1 tablet Oral orally every day No Longer Active 52970 salmeterol 2 inhalation Inhalation inhaled every 12 hours as needed. (unsure of dose) No Longer Active 5861771 Sulfacetamide Sodium 100 MG/ML Ophthalmic Solution 1 drop Ophthalmic into the eye(s) every 3 hours (7 day) (left eye) No Longer Active Allergies * No Known Allergies Results Laboratory Results Order: Thyroid Stimulating Hormone Legend: D=Delta, H=High, L=Low, HH=Critical High, LL=Critical Low, AA=Critical Alpha-Numeric, C=Corrected, A=Abnormal LOINC Test Result Flag Range Units Date 1TSH 1.92 0.34-5.60 uIU/ml 04/12/2015 13:04 * Performing Lab Footnotes:* [facility] - [id number] - [address] [place] [address] - [place] Order: CBC With Automated Differential Legend: D=Delta, H=High, L=Low, HH=Critical High, LL=Critical Low, AA=Critical Alpha-Numeric, C=Corrected, A=Abnormal LOINC Test Result Flag Range Units Date 90- 1WBC # Bld Auto 9.4 4.5-11.0 10^3/mm3 04/12/2015 13:03 24403-3 1Retics # Auto 4.70 4.00-5.20 10^6/mm3 04/12/2015 13:03 24697-9 1Hgb BldV-mCnc 14.7 12.0-16.0 g/dl 04/12/2015 13:03 [...] Bld Auto 298 150-450 10^3/mm3 04/12/2015 13:03 81621-2 1PMV Bld 11.0 H 7.4-10.4 04/12/2015 13:03 46972-6 1Neutrophils # CSF 62.5 40.0-74.0 % 04/12/2015 13:03 1LYMPH% 26.7 14.0-46.0 % 04/12/2015 13:03 26808-9 1CD43 Ag Tiss Ql ImStn 8.0 4.0-13.0 % 04/12/2015 13:03 711-2 1Eosinophil # Bld Auto 2.3 0.0-4.0 % 04/12/2015 13:03 704-7 1Basophils # Bld Auto 0.5 <=3.0 % 04/12/2015 13:03 751-8 1Neutrophils # Bld Auto 5.9 1.8-7.8 04/12/2015 13:03 50907-1 1Lymphocytes # Bld 2.5 0.7-4.5 04/12/2015 13:03 01929-1 1CD43 Ag Tiss Ql ImStn 0.8 0.1-1.0 04/12/2015 13:03 711-2 1Eosinophil # Bld Auto 0.22 <=4.00 04/12/2015 13:03 704-7 1Basophils # Bld Auto 0.05 <=0.20 04/12/2015 13:03 2MANDIFF N 04/12/2015 13:03 11506-2 2RBC Bld Auto N 04/12/2015 13:03 * Performing Lab Footnotes:* [facility] - [id number] - [address] [place] [address] - [place] * [address] [place] [address] Laboratory - [id number] - [address] [place] [address] - Cigarette Machine Filler:, Lexie Rowe MD - [place] Order: HCG Qualatative Legend: D=Delta, H=High, L=Low, HH=Critical High, LL=Critical Low, AA=Critical Alpha-Numeric, C=Corrected, A=Abnormal LOINC Test Result Flag Range Units Date 67098-8 1Manual diff Bld Negative 04/12/2015 13:03 * Performing Lab Footnotes:* [facility] - [id number] - [address] [place] [address] - [place] Vital Signs * No [...]
[2016-06-20 20:38] VITALS: TEMP 98.1; Ht 160 cm; Wt 90.6 kg
--- OUTSIDE RECORDS SUMMARY | 2016-06-20 20:51 | XMS REPORT ---
Author Author [facility] Organization Unknown Address Unknown Phone Unavailable Care Team Providers Care Spring Coverer Name Role Phone UNASSIGNED DOCTOR , DOCTOR PP [phone] Reason For Visit Chief Complaint Z01.411 R87.610 [...]
--- OUTSIDE RECORDS SUMMARY | 2016-06-20 20:51 | XMS REPORT | Continuity of Care Document ---
Author Author [facility] Organization [facility] Address Unknown Phone Unavailable Allergies Active Description Code Type Severity Reaction Onset Reported/Identified Relationship to Patient Clinical Status Yes Augmentin 4242 Unknown intolerance 04/18/2013 Yes Penicillins 476 Unknown N/A 04/09/2014 Yes No Known Allergies 290213 Unknown N/A 03/18/2015 Medications Problems Date Dx [...] 789.00 ABDOMINAL PAIN, UNSPECIFIED SITE 12/05/2014 ANGELICA BRAY 244.9 UNSPECIFIED HYPOTHYROIDISM 12/05/2014 ANGELICA BRAY 256.4 POLYCYSTIC OVARIES 12/05/2014 ANGELICA BRAY V22.2 STATE, INCIDENTAL 12/16/2014 SAPPHIRE BRANTLEY P V28.89 OTHER SPECIFIED SCREENING 01/24/2015 SAPPHIRE BARNTLEY P V28.89 OTHER SPECIFIED SCREENING 01/24/2015 SAPPHIRE [...] Procedures Code Description Performed By Performed On 71I07U3 EXTRACTION OF PRODUCTS OF CONCEPTION, LOW CERVICAL, OPEN APPROACH KRISTIN BURNETTLOPEZ Vega 03/18/2015 Results Encounters ACCT No. Visit Date/Time Discharge Status Pt. Type Provider Facility Loc./Unit Complaint [id number] 04/12/2015 12:26:00 ACT Unknown GURU CALERO [id number] 04/08/2015 15:53:00 ACT Unknown BLACK MCGUIRE [id number] 04/07/2015 15:32:00 [facility] NSER NAUSEA AND / OR VOMITING [id number] 03/18/2015 09:28:00 ACT Inpatient LEXSANGEETHA DONIS [facility] NSOB [id number] 03/17/2015 15:00:00 Document Registration [id number] 03/02/2015 12:55:00 ACT Unknown SANGEETHA BURNETT [facility] OBGYN [id number] 02/15/2015 07:47:00 ACT Unknown ANGELICA BRAY [id number] 01/10/2015 13:19:00 ACT Unknown SAPPHIRE BRANTLEY [facility] OBGYN [id number] 12/02/2014 11:01:00 ACT Unknown ANGELICA BRAY [id number] 11/02/2014 09:53:00 ACT Unknown SAPPHIRE BRANTLEY [id number] 10/31/2014 13:30:00 ACT Unknown Shashi BENITO [facility] NSER UTI COMPLAINTS [id number] 10/20/2014 10:11:00 ACT Unknown SANGEETHA BURNETT [facility] OBGYN [id number] 10/20/2014 10:11:[address] [facility] OBGYN [id number] 09/28/2014 13:21:00 ACT Unknown ANGELICA BRAY
--- OUTSIDE RECORDS SUMMARY | 2016-06-20 20:51 | XMS REPORT ---
Author Author [facility] Organization Unknown Address Unknown Phone Unavailable Care Team Providers Care Rehabilitation Caseworker Name Role Phone UNASSIGNED DOCTOR , DOCTOR PP [phone] Reason For Visit Chief Complaint V72.31 Social [...]
[2016-06-20] MEDS ORDERED: SYMBOXIN PO (21:04)
[2016-06-20] MEDS ORDERED: LEVO50TA11 PO ×2 (21:05→21:06)
[2016-06-20] MEDS ORDERED: ALBU8.5H INH (21:07)
[2016-06-20] MEDS ORDERED: HYDR25TA85 PO (21:59)
[2016-06-20] MEDS ORDERED: PRED20TA PO (21:59)
--- NOTE | 2016-06-20 22:00 | ERPDOC ---
Departure Disposition Decision Date: Jun 20, 2016 Disposition Decision Time: 21:56 Disposition: 01 DISCHARGED HOME, SELF-CARE Impression Impression Impression: Primary Impression: Chigger bites Additional Impression: Contact dermatitis due to rhus toxicodendron Severity: Moderate Condition: Stable Seen By: Physician only Referrals: YOUR PHYSICIAN Patient Instructions: Chigger Bite (DC), Poison Monica (ED) Problems/Meds/Labs Reviewed?: Yes Medications reviewed and manag: Yes Additional Instructions: You have chigger bites and poison monica. Take the steroids as prescribed to help with your bites and itching. You may continue to use topical steroids as needed. Use the atarax as needed to help with itching. Follow up with your doctor. Follow up care ordered?: Yes Mental Status: Alert, Oriented Scripts Olopatadine HCl (Patanol) 50 Drop/5 Ml Drops 1 DROP BOTH EYES BID for 14 Days, ML Prov: JULYRICK DO 06/20/16 Hydroxyzine HCl (Hydroxyzine HCl) 25 Mg Tablet 1 TAB PO QID for 30 Days, #120 TAB Prov: JULYRICK DO 06/20/16 Prednisone (Prednisone) 20 Mg Tablet 60 MG PO DAILY for 7 Days, #21 TAB 0 Refills Take daily each morning Prov: JULYRICK DO 06/20/16 HPI - Skin General General Chief Complaint: Skin Rash/Abscess Stated Complaint: BODY RASH,NAUSEA Time Seen by Provider: 20:43 Source: patient Exam Limitations: no limitations HPI - Skin General Initial Comments 30yo woman presents to the ER for evaluation of a rash. Pt got stuck in some mud for '24 hours in the middle of nowhere". Since then, she has had a rash that is spreading. Rash is pruritic; has not improved with alcohol, benadryl, cortisone cream, or any other interventions. Occurred At: home Onset: Gradual, Getting worse Duration: 1 week Severity: moderate Location: extremities Possible Cause: no cause identified Associated Symptoms: change in skin texture Hx of Similar Symptoms: No Allergies: Coded Allergies: No Known Allergies (Unverified , 06/20/16) Past History Past Medical History Metabolic: hypothyroidism ENMT: allergies Respiratory: asthma Review of Systems Integumentary Skin: color change, itching, rash All other Systems All Other Systems: Reviewed and Negative Physical Exam General General Nourishment: well nourished, well developed, appears stated age, no acute distress, adult, obese General Body Habitus: well groomed Vitals and Pain First Documented Vital Signs Date Time Temp Pulse Resp B/P Pulse Ox O2 Delivery O2 Flow Rate FiO2 06/20/16 20:38 98.1 70 16 171/100 100 Room Air Weight: Kilograms: 90.600 Height (feet): 5 Height (inches): 3.00 Triage Pain Scale: RN VS reviewed by Provider: Yes Integumentary (brief) Comments Areas of circular erythema 1-2cm in diameter with a central punctum. All are excoriated. Healing lesions present along pts abdomen, directly underneath the waistband. In addition, pt has 3+ linear, erythematous, weeping, excoriated lesions along her anterior right forearm. Supervisory Exam Head: atraumatic Eyes: PERRL Nares: no exudate Neck: trachea midline Chest: symmetric Abdomen: non-distended Musculoskeletal: no deformity or atrophy Neurological: no abnormal movements Psychological: alert, appropriate Differential Diagnoses Considering: Abrasion, Abscess, Bite, Cellulitis, Eczema, Folliculitis, Poison Monica Dermatitis, Tinea Corporis, Lyme's Disease, [place] Spotted Fe, Insect Sting, Varicella/Shingles, Viral Exanthem Progress Results/Orders Orders Procedure Category Date Status Time Prednisone PHA 06/20/16 Complete (Prednisone) 22:15 Medications Current ED Medications Prednisone (PredniSONE) 60 mg O ONCE PO Last administered on 06/20/16t 22:12; Start 06/20/16 at 22:15; Stop 06/20/16 at 22:16; Status DC Progress Progress Pt with classic poison monica streaking along her right forearm. Circular lesions do not meet criteria for infection; are not clustered around follicles. Most likely are chigger bites. RICK DUBON DO Jun 20, 2016 22:00
[2016-06-20] MEDS ORDERED: OLOP5DRO BOTH EYES (22:10)
[2016-06-20 22:15] VITALS: BP 166/92; PULSE 68; RESP 16; O2SAT 99
[2016-06-20] MEDS ORDERED: PredniSONE 10 MG TABLET PO ONE (22:15)
== END 2016-06-20 22:18 | disposition home or self-care (01) ==
LOC: ED 20:21
DX: B88.0 Other acariasis (principal); L23.7 Allergic contact dermatitis due to plants, except food
CPT/HCPCS: 99283; J7512